=== PATIENT | female | born 1970 | race Caucasian/White ===

== ENCOUNTER 2017-01-09 16:42 | Emergency (ER) | payer BC ==
[~2017-01-09] VITALS: Ht 170.2 cm; Wt 75.6 kg
[2017-01-09 16:48] VITALS: TEMP 36.9; Ht 170.2 cm; Wt 75.6 kg
[2017-01-09] MEDS ORDERED: SODIUM CHLORIDE 0.9% 500ML 500 ML IV STA (17:05)
[2017-01-09] MEDS ORDERED: SODIUM CHLORIDE 0.9% 1000ML 1,000 ML IV STA (17:05)
[2017-01-09] MEDS ORDERED: DICYCLOMINE HCL 20 MG TAB PO STA (17:05)
[2017-01-09] MEDS ORDERED: INSPMPNVLG (17:13)
[2017-01-09] MEDS ORDERED: LIRA18IN SQ (17:13)
[2017-01-09] MEDS ORDERED: VALA500T60 PO (17:13)
[2017-01-09] MEDS ORDERED: LISI-461 PO (17:13)
[2017-01-09] MEDS ORDERED: ESCI10TA17 PO (17:13)
[2017-01-09] MEDS ORDERED: PRAV10TA39 PO (17:13)
[2017-01-09] MEDS ORDERED: OPTIRAY 320 IV PRN (17:15)
[2017-01-09 17:18] LABS: BASO % 0.1 %; BASO ABS # 0.01 K/uL (0-0.2); COMPLETE YES; EOS % 0.8 %; HEMATOCRIT 39.1 % (37-47); IG% 0.3 %; LYMPH % 27.2 %; MONO % 7.2 %; NEUT % 64.4 %; PLATELET COUNT 288 K/uL (130-400); RED BLOOD COUNT 4.16 M/uL (4.2-5.4); WHITE BLOOD COUNT 7.35 K/uL (4.8-10.8)
[2017-01-09 17:28] LABS: URINE APPEARANCE CLEAR (CLEAR); URINE BILIRUBIN NEG (NEG); URINE COLOR YELLOW; URINE NITRITE NEG (NEG); URINE SPECIFIC GRAVITY 1.006 (1.000-1.030); UROBILINOGEN NEG (NEG); ZZUR CULT IF INDIC CLEAN CATCH NO
[2017-01-09 17:34] LABS: MANUAL MICROSCOPIC REQUIRED? NO; REVIEW REQ? YES
[2017-01-09 17:36] LABS: BUN/CREATININE RATIO 11.9 (10-20); CALCIUM 9.1 mg/dl (8.5-10.1); CREATININE 0.73 mg/dl (0.60-1.20); MAGNESIUM 1.8 mg/dl (1.8-2.4); POTASSIUM 3.7 mmol/L (3.5-5.1)
[2017-01-09 17:56] LABS: URINE EPITHELIAL CELL AUTO 20-30 /lpf (0-5)
--- NOTE | 2017-01-09 18:00 | EMERGENCY ROOM VISIT NOTE ---
History Report prepared by Ck: Parvez Wilkerson Under the Supervision of: Dr. Tracy Talley M.D. First contact with patient: 16:56 Chief Complaint: GI ASSESSMENT Stated Complaint: CRAMPING,DIARRHEA,BLOODY STOOL Nursing Triage Summary: pt awoke in the middle of the night with abd discomfort, vomit x 1 middle of night, having nausea, liq stool x 2 mucousy/blood. spec obtained. clean colonoscopy 1 year ago. has no other hx. has been drinking gatorade History of Present Illness The patient is a 46 year old female who presents to the Emergency Room with complaints of constant abdominal cramping starting around 0300 this morning. She currently rates her discomfort as a 2/10 in severity. The patient additionally states that she vomited once, and she had diarrhea. She states that is was not bloody at first, but now she is having some hematochezia. The patient states that she has a history of diabetes and asthma, and she has been drinking Gatorade and ate some Cheerios. The patient denies any fevers, though she states that she is having some chills. She states that she takes a baby aspirin. Source of History: patient Onset: 0300 Position: abdomen Symptom Intensity: 2/10 Quality: cramping Timing: constant Associated Symptoms: + chills, + vomiting, + hematochezia, + diarrhea, No fevers Review of Systems See HPI for pertinent positives & negatives. A total of 10 systems reviewed and were otherwise negative. Past Medical & Surgical Medical Problems: (1) Asthma (2) Diabetes (3) HTN (hypertension) (4) IBS (irritable bowel syndrome) Family History Diabetes mellitus Heart disease Hypertension Lung disease Social History Smoking Status: Former Smoker Marital Status: Housing Status: lives with family Occupation Status: employed Current/Historical Medications Scheduled Escitalopram (Lexapro), 10 MG PO DAILY Insulin Aspart (novoLOG INSULIN PUMP ), 1 EA N/A UD Liraglutide (Victoza), 1.2 ML SQ DAILY Lisinopril (Zestril), 10 MG PO DAILY Pravastatin Sodium (Pravastatin Sodium), 1 TAB PO HS Valacyclovir (Valtrex), 500 MG PO DAILY Allergies Coded Allergies: No Known Allergies (Unverified , 01/09/17) Physical Exam Vital Signs Date Time Temp Pulse Resp B/P (MAP) Pulse Ox O2 Delivery O2 Flow Rate FiO2 01/09/17 19:20 88 20 130/76 98 Room Air 01/09/17 19:19 139/77 01/09/17 19:07 77 23 01/09/17 19:02 70 21 01/09/17 18:57 70 18 01/09/17 18:52 72 21 01/09/17 18:47 79 33 01/09/17 18:42 82 20 01/09/17 18:37 76 19 01/09/17 18:32 86 17 01/09/17 18:27 75 21 01/09/17 18:22 85 21 01/09/17 18:02 74 25 38/77 98 01/09/17 17:57 83 18 01/09/17 17:52 72 16 01/09/17 17:47 73 21 01/09/17 17:42 79 17 01/09/17 17:37 73 21 01/09/17 17:32 73 14 01/09/17 17:27 80 25 01/09/17 17:22 79 14 01/09/17 17:19 84 01/09/17 16:48 36.9 70 20 138/86 97 Room Air Physical Exam Vital signs reviewed. General: Well-appearing female, in no significant distress. HEENT: No scleral icterus, PERRLA, neck supple. Atraumatic. Cardiovascular: Regular rate and rhythm, no extra sounds. Pulmonary: Clear to auscultation bilaterally, normal work of breathing. Abdomen: Mild epigastric tenderness to the epigastric area. Soft, nondistended, positive bowel sounds. Musculoskeletal: Atraumatic, no peripheral edema. Neurologic: Patient awake alert and oriented x 3. Skin: Warm, dry, no rash Medical Decision & Procedures ER Provider Diagnostic Interpretation: Radiology results as stated below per my review and radiologist interpretation: ABD/PELVIS IV CONTRAST ONLY HISTORY: 46 years-old Female ABD PAIN, BLOODY DIARRHEA acute generalized abdominal pain with bloody stools. Initial exam. COMPARISON: None available TECHNIQUE: Multiple axial CT images of the abdomen and pelvis were obtained following the intravenous administration of 120 mL Optiray 320. A dose lowering technique was used consistent with the principals of BJ. FINDINGS: Lung bases are generally clear. There is no pneumoperitoneum identified. Imaged inferior cardiac chambers are unremarkable. The liver, spleen, pancreas and adrenal glands are within normal limits. Gallbladder is mildly contracted. Probable cysts are seen within the right kidney, largest of which measures 11 mm. No renal calculi or hydronephrosis. Ureters, urinary bladder and uterus are unremarkable. Cervix appears mildly prominent in size which is a nonspecific finding. Adnexa are unremarkable. Abdominal aorta is normal in both course and caliber. No bulky retroperitoneal adenopathy. Inguinal lymph nodes are seen measuring in the upper limits of normal at 8 mm in short axis, nonspecific. There is no bowel obstruction. Circumferential wall thickening with mucosal hyperemia involves a long segment of colon extending from the splenic flexure to the sigmoid colon containing mild amount of fluid without significant surrounding inflammatory stranding. The appendix is normal. Soft tissues are unremarkable. The bones are intact. IMPRESSION: 1. Findings suggest mild acute colitis, likely infectious or inflammatory involving the descending and sigmoid colon. 2. Normal appendix. 3. Mild nonspecific prominence of the cervix could be correlated with clinical exam. The above report was generated using voice recognition software. It may contain grammatical, syntax or spelling errors. Electronically signed by: Ronnie Mueller M.D. 01/09/2017 6:23 PM Dictated Date/Time: 01/09/2017 6:16 PM Laboratory Results 01/09/17 17:05 Red Blood Count 4.16, Mean Corpuscular Volume 94.0, Mean Corpuscular Hemoglobin 32.0, Mean Corpuscular Hemoglobin Concent 34.0, Mean Platelet Volume 9.0, Neutrophils (%) (Auto) 64.4, Lymphocytes (%) (Auto) 27.2, Monocytes (%) (Auto) 7.2, Eosinophils (%) (Auto) 0.8, Basophils (%) (Auto) 0.1, Neutrophils # (Auto) 4.73, Lymphocytes # (Auto) 2.00, Monocytes # (Auto) 0.53, Eosinophils # (Auto) 0.06, Basophils # (Auto) 0.01 01/09/17 17:05 Test 01/09/17 17:05 01/09/17 17:10 White Blood Count 7.35 K/uL (4.8-10.8) Red Blood Count 4.16 M/uL (4.2-5.4) Hemoglobin 13.3 g/dL (12.0-16.0) Hematocrit 39.1 % (37-47) Mean Corpuscular Volume 94.0 fL (80-100) Mean Corpuscular Hemoglobin 32.0 pg (25-34) Mean Corpuscular Hemoglobin Concent 34.0 g/dl (32-36) Platelet Count 288 K/uL (130-400) Mean Platelet Volume 9.0 fL (7.4-10.4) Neutrophils (%) (Auto) 64.4 % Lymphocytes (%) (Auto) 27.2 % Monocytes (%) (Auto) 7.2 % Eosinophils (%) (Auto) 0.8 % Basophils (%) (Auto) 0.1 % Neutrophils # (Auto) 4.73 K/uL (1.4-6.5) Lymphocytes # (Auto) 2.00 K/uL (1.2-3.4) Monocytes # (Auto) 0.53 K/uL (0.11-0.59) Eosinophils # (Auto) 0.06 K/uL (0-0.5) Basophils # (Auto) 0.01 K/uL (0-0.2) RDW Standard Deviation 42.2 fL (36.4-46.3) RDW Coefficient of Variation 12.4 % (11.5-14.5) Immature Granulocyte % (Auto) 0.3 % Immature Granulocyte # (Auto) 0.02 K/uL (0.00-0.02) Anion Gap 8.0 mmol/L (3-11) Est Creatinine Clear Calc Drug Dose 100.0 ml/min Estimated GFR () 112.9 Estimated GFR (Non- 97.4 BUN/Creatinine Ratio 11.9 (10-20) Calcium Level 9.1 mg/dl (8.5-10.1) Magnesium Level 1.8 mg/dl (1.8-2.4) Total Bilirubin 0.6 mg/dl (0.2-1) Direct Bilirubin 0.2 mg/dl (0-0.2) Aspartate Amino Transf (AST/SGOT) 16 U/L (15-37) Alanine Aminotransferase (ALT/SGPT) 21 U/L (12-78) Alkaline Phosphatase 54 U/L (45-117) Total Protein 7.5 gm/dl (6.4-8.2) Albumin 3.7 gm/dl (3.4-5.0) Lipase 93 U/L (73-393) Urine Color YELLOW Urine Appearance CLEAR (CLEAR) Urine pH 6.0 (4.5-7.5) Urine Specific [place] 1.006 (1.000-1.030) Urine Protein NEG (NEG) Urine Glucose (UA) NEG (NEG) Urine Ketones NEG (NEG) Urine Occult Blood TRACE (NEG) Urine Nitrite NEG (NEG) Urine Bilirubin NEG (NEG) Urine Urobilinogen NEG (NEG) Urine Leukocyte Esterase NEG (NEG) Urine WBC (Auto) 1-5 /hpf (0-5) Urine RBC (Auto) 5-10 /hpf (0-4) Urine Hyaline Casts (Auto) 0 /lpf (0-5) Urine Epithelial Cells (Auto) 20-30 /lpf (0-5) Urine Bacteria (Auto) NEG (NEG) Date/Time Source Procedure Growth Status 01/09/17 17:10 Stool C.difficile Toxin B Gene (PCR) - Final No C. difficile toxin B gene detected Complete Laboratory results per my review. Medications Administered Medications (Trade) Dose Ordered Sig/Nilda Route Start Time Stop Time Status Last Admin Dose Admin Sodium Chloride 500 ml @ 999 mls/hr Q31M STAT IV 01/09/17 17:05 01/09/17 17:35 DC 01/09/17 17:05 999 MLS/HR Sodium Chloride 1,000 ml @ 200 mls/hr Q5H STAT IV 01/09/17 17:05 01/09/17 20:27 DC 01/09/17 17:54 200 MLS/HR Dicyclomine HCl (Bentyl Tab) 20 mg NOW STAT PO 01/09/17 17:05 01/09/17 17:08 DC 01/09/17 17:55 20 MG ED Course 1656: Past medical records reviewed. The patient was evaluated in room A3. A complete history and physical examination was performed. 1705: Bentyl Tab 20mg PO, Sodium Chloride 1000 ml @ 200 mls/hr IV, Sodium Chloride 500 ml @ 999 mls/hr IV 1910: I reevaluated the patient, and she was feeling fine. I discussed the treatment plan with the patient. The patient will be discharged home. Medical Decision Differential Diagnoses: GI bleed, infectious diarrhea, colitis, C Diff, rectal fissure, diverticulitis, and colonic mass. This patient was evaluated and appeared to be in no significant distress. IV access was obtained and laboratory work was drawn. Patient was hydrated with normal saline solution. Patient was given Bentyl 20 mg tab by mouth. She didn' t provide a stool specimen that was sent for testing. This is C. difficile negative. Patient's H&H is stable and she has a normal white blood cell count. CT scan abdomen and pelvis reveals a nonspecific colitis. Patient was advised to drink plenty of clear fluids and eat a bland diet. She will call the ER in 48 hours for stool culture results. She'll follow-up with her PCP upon return home and return to the ER for worsening of symptoms or any medical concerns. Medication Reconcilliation Current Medication List: was personally reviewed by me Blood Pressure Screening Patient's blood pressure: Elevated blood pressure Blood pressure disposition: Elevated BP felt to be situational Impression Primary Impression: Hemorrhagic colitis Scribe Attestation The scribe's documentation has been prepared under my direction and personally reviewed by me in its entirety. I confirm that the note above accurately reflects all work, treatment, procedures, and medical decision making performed by me. Departure Information Dispostion Home / Self-Care Referrals Isis Arevalo M.D. (PCP) Forms HOME CARE DOCUMENTATION FORM, IMPORTANT VISIT INFORMATION Patient Instructions My [facility] Additional Instructions Diagnosis: Hemorrhagic colitis BRAT diet: bananas, rice, applesauce and toast. Drink plenty of clear fluids, water and Gatorade. Avoid dairy products for 24-48 hours. Call the ER in 48 hours for stool culture results, Follow-up with your physician this week for reevaluation. Return to the emergency department for worsening of symptoms or any medical concerns.
--- NOTE | 2017-01-09 18:24 | DIAGNOSTIC IMAGING REPORT ---
ABD/PELVIS IV CONTRAST ONLY HISTORY: 46 years-old Female ABD PAIN, BLOODY DIARRHEA acute generalized abdominal pain with bloody stools. Initial exam. COMPARISON: None available TECHNIQUE: Multiple axial CT images of the abdomen and pelvis were obtained following the intravenous administration of 120 mL Optiray 320. A dose lowering technique was used consistent with the principals of BJ. FINDINGS: Lung bases are generally clear. There is no pneumoperitoneum identified. Imaged inferior cardiac chambers are unremarkable. The liver, spleen, pancreas and adrenal glands are within normal limits. Gallbladder is mildly contracted. Probable cysts are seen within the right kidney, largest of which measures 11 mm. No renal calculi or hydronephrosis. Ureters, urinary bladder and uterus are unremarkable. Cervix appears mildly prominent in size which is a nonspecific finding. Adnexa are unremarkable. Abdominal aorta is normal in both course and caliber. No bulky retroperitoneal adenopathy. Inguinal lymph nodes are seen measuring in the upper limits of normal at 8 mm in short axis, nonspecific. There is no bowel obstruction. Circumferential wall thickening with mucosal hyperemia involves a long segment of colon extending from the splenic flexure to the sigmoid colon containing mild amount of fluid without significant surrounding inflammatory stranding. The appendix is normal. Soft tissues are unremarkable. The bones are intact. IMPRESSION: 1. Findings suggest mild acute colitis, likely infectious or inflammatory involving the descending and sigmoid colon. 2. Normal appendix. 3. Mild nonspecific prominence of the cervix could be correlated with clinical exam. The above report was generated using voice recognition software. It may contain grammatical, syntax or spelling errors. Electronically signed by: Ronnie Mueller M.D. 01/09/2017 6:23 PM Dictated Date/Time: 01/09/2017 6:16 PM
[2017-01-09 19:20] VITALS: BP 130/76; PULSE 88; O2SAT 98
== END 2017-01-09 19:20 | disposition home or self-care (01) ==
LOC: C.EDB 16:44 → C.EDA 19:20
DX: K52.9 Noninfective gastroenteritis and colitis, unspecified (principal); J45.909 Unspecified asthma, uncomplicated; E11.9 Type 2 diabetes mellitus without complications; I10 Essential (primary) hypertension; K58.9 Irritable bowel syndrome, unspecified; Z83.3 Family history of diabetes mellitus; Z82.49 Family history of ischemic heart disease and other diseases of the circulatory system; Z83.6 Family history of other diseases of the respiratory system; Z87.891 Personal history of nicotine dependence; Z79.4 Long term (current) use of insulin; Z79.899 Other long term (current) drug therapy

== ENCOUNTER 2024-07-16 10:10 | Inpatient (IN) ==
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
--- OUTSIDE RECORDS SUMMARY | 2024-07-16 10:17 | External Medical Summary | Continuity of Care Document ---
Author Name Unknown Organization [facility] [address] [place] [address] [place] [address] [id number] Care Team Providers Care Blanket Inspector Name Role Phone Irena Humphrey Primary Care Physician [phone] Encounter [facility] [id number] Date(s): 07/06/24 - 07/06/24 [facility] [address] [place] [phone] Encounter Diagnosis Acute URI(Discharge Diagnosis) - 07/06/24 Discharge Disposition: Home or Self Care Attending Physician: MD Jordan Christopher Encounter Type: Clinic Allergies, Adverse Reactions, Alerts No Known Allergies Assessment and Plan Extracted from: Title:Office Visit Note Author:DO Echevarria Alonn a Paige Date:07/06/24 Acute URI - Acute, not at goal - 4 days of congestion/rhinorrhea/aches - Suspect Viral URI,Flu A, Flu B, and COVID-19 negative - Recommend use of OTC Nasal Corticosteroid (Flonase), Antihistamine (Claritin/Skye/Zyrtec), and Decongestant (Dextromethorphan/Guaifenesin) - Discussed som pot and nasal saline rinses for additional comfort - Encouraged adequate hydration (64 ounces of water daily) - Patient advised to call if symptoms worsen or if temperature > 38C - Return & EDprecautions provided for T1DM & viral URI Immunizations Given and Recorded Vaccine Date Status Refusal Reason SARS-CoV-2 (COVID-19) mRNA-vacc - [id number] 02/03/24 Recorded influenza virus vaccine, inactivated 01/31/24 [...] unspecified 2Result Comment: 2021-09-19: Historical information-source unspecified Mental Status 07/06/24 Barriers to Learning one year None evide nt Mandatory Health Literacy Documentation Yes Health Literacy Communication Barriers N ever Primary Language Paraguayan Problem List Condition Confirmation Course Effective Dates [...] Diagnosis Diagnosis Type Effective Dates Health Status Clini yasmine Service Informant Acute URI Discharge Diagnosis 07/06/24 Non-Specified Procedures Procedure Date Related Diagnosis Body [...] CTR - Carpal tunnel release, right hand 22 11/30/14 Completed X-ray 2014 Completed Injection of [...] PCP 4Left Middle Trigger Digit Release 5[facility] Impression: 1 Normal contractile response of the gallbladder to Kinevac infusion 2.Normal biliary imaging study 6[facility] Impression: 1. No significant abnormality identified within the right upper quadrant 7[facility] Impression: ACR BI-RADS CATEGORY 2: BENIGN 1. No evidence of malignancy 8[facility] Impression: 1. No acute abnormalities and in particular no radiographic evidence of pneumonia 9[facility] Impression: 1. Posterior vitreous detachment OD. 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 Treated proliferative diabetic retinopathy OD. Good PRP 4. Treated proliferative diabetic retinopathy OS. Good PRP 5. Chronic vitreous hemorrhage OD 6. Nuclear sclerosis OU 10[facility] Impression: 1. Unremarkable esophagram 11[facility] Impression: ACR BI-RADS CATEGORY 1: NEGATIVE 1. No evidence of malignancy 12No acute abnormalities and in particular no evidence of pneumonia 13Left Carpal Tunnel Syndrome 14Left 15[facility] 16[facility] Impression: ACR BI-RADS CATEGORY 2: BENIGN 1. [...] stomach Normal examined duodenum Await pathology results. 19[facility] Impression: 1. DM Type 1 with ocular complications 2. Proliferative diabetic retinopathy OD 3. Treated proliferative diabetic retinopathy OS. Quiescent post PRP 4. Nuclear sclerosis OU 20[facility] Impression: 1. Trace layering gallbladder sludge. No cholelithiasis or sonographic evidence of acute cholecystitis 2. No biliary ductal dilation 21IMPRESSION: No active disease in the chest. 22right 23May- 24left shoulder 25PROCEDURE: 1. Arthroscopic capsular release. 2. Arthroscopic subacromial decompression. 3. Manipulation of shoulder. 26left eye 27PRP LE 10/15/03, 11/08/03 and 12/03/03 Results Laboratory List Name Date FluA/B+SARS CoV2 [facility] POC Outpt. 07/06 Most recent to oldest [Reference Range]: 1 Rapid Influenza A, POC Negative 1 (07/06/24 8:46 AM) Rapid Influenza B, POC Negative (07/06/24 8:46 AM) Rapid Influenza A Screen Ref Range Negat neto (07/06/24 8:46 AM) Rapid Influenza B Screen Ref Range Negat neto (07/06/24 8:46 AM) COVID-19 Coronavirus Antigen POC Negativ e 2 (07/06/24 8:46 AM) 1Result Comment: Performed at: [facility], [facility], [address], [place] [id number] 2Result Comment: Positive results indicate the presence of viral antigens, but clinical correlation with patient history and other diagnostic information is necessary to determine infection status. Positive results do not rule out bacterial infection or co-infection with other viruses. The agent detected may not bethe definite cause of disease. Negative results should be treated as presumptive, do not rule out SARS-CoV-2 infection and should not be used as the sole basis for treatment or patient management decisions, including infection control decisions. Negative results should be considered in the context of a patients recent exposures, history and the presence of clinical signs and symptoms consistent with COVID-19, and confirmed with a molecular assay, if necessary, for patient management. Performed at: [facility], [address], [address], [place] [address] Vital Signs Most recent to oldest [Reference Range]: 1 Temperature [36.5-37.9 DegC] 36.7 DegC (07/06/24 8:17 AM) Heart Rate 87 bpm (07/06/24 8:17 AM) Respiratory Rate 12 br/min (07/06/24 8:17 AM) Blood Pressure 108/72mmHg (07/06/24 8:17 AM) Cuff Pulse Pressure 36 mmHg (07/06/24 8:17 AM) Social History Social History Type Response Tobacco Former smoker, Cigar ettes, 0.5 per day. 24 year(s). Started age 16 Years. Stopped age 40 Years. Smoking Status Never smoked cigaret tania Sex Female Sex Representation Female (finding) FCM Outpt Note * MD Julian, Carson: MODIFY MD Jordan Christopher: MODIFY Event Display: FCM Outpt Note Authored Date: Chief Complaint Cold symptoms x 3-4 days sinus pressure cough fever 100.6 last night body aches fatugie History of Present Illness Rupert is a 54 F w/ hx of T1DM, asthma, GERD, and allergies who presents for evaluation of URI. URI - Onset Wednesday night w/ sore throat and sinus pressure - Progressed to significant rhinorrhea, fatigue, aches - Temperature up to 100.6 - Mild dyspnea, no chest pain - Hx of T1DM, adjusted pump d/t low PO intake - Hydrating well, 100 + ounces - Notes significant rhinorrhea and PND - Tylenol w/ benefit - Notes father just passed w/ Flu - Denies GI symptoms - NoHAor lightheadedness Med Changes: None Allergies: Reviewed Physical Exam Vitals & Measurements T:36.7C HR:87(Monitored) RR:12 BP:108/72 SpO2:97% General: NAD, alert, non-toxic HEENT: NC/AT, PERRL, EOMI, patent erythematous nares, MMM - Oropharynx: MIld erythema, no purulence - TM: Normal TM bilaterally, no erythema or purulence - Maxillary Sinus: No TTP - Frontal Sinus: TTP Neck: Supple, no LAD, normal ROM Respiratory: Non-labored, no wheezing/rhonchi/rales, CTAB Cardiovascular: RRR, normal S1/S2, no murmur/rubs/gallops Abdomen: Soft, non-distended, no TTP, normoactive bowel sounds, no masses Assessment/Plan Acute URI - Acute, not at goal - 4 days of congestion/rhinorrhea/aches - Suspect Viral URI,Flu A, Flu B, and COVID-19 negative - Recommend use of OTC Nasal Corticosteroid (Flonase), Antihistamine (Claritin/Skye/Zyrtec), andDecongestant (Dextromethorphan/Guaifenesin) - Discussed som pot and nasal saline rinses for additional comfort - Encouraged adequate hydration (64 ounces of water daily) - Patient advised to call if symptoms worsen or if temperature > 38C - Return & EDprecautions provided for T1DM & viral URI Attestation Patient's case reviewed in detail with Dr. Echevarria, agree with detail of history and physical as documented above. Plan reviewed in detail with providing resident physician. Problem List/Past Medical History Ongoing Adhesive capsulitis [...] Hematochezia Sinus infection Tobacco abuse Viral URI Procedure/Surgical History EGD - esophagogastroduodenoscopy| Service Date: 04/19/2023Release of trigger finger| Service Date: 04/08/2023HEPATOBILIARY SYSTEM IMAGING| Service Date: 02/19/2023Ultrasound scan of upperabdomen| Service Date: 01/28/2023Mammogram| Service Date: 3Chest x-ray| Service Date: 3Diabetic retinal eye exam| Service Date: 2Barium swallow| Service Date: 01/27/2022Mammogram| Service Date: 2Chest x-ray| Service Date: 2Carpal tunnel release| Service Date: 04/10/2021arpal tunnel| Service Date: 1Papanicolaou smeartaken| Service Date: 12/25/2020Mammogram| Service Date: 09/10/2020iabetic retinal eye exam| Service Date: 07/08/2020Upper GI endoscopy| Service Date: 02/29/2020Eye examination| Service Date: 02/05/2020Ultrasound scan of upper abdomen| Service Date: 11/16/2019Chest X-ray| Service Date: 07/13/2019Speech pathology procedure| Service Date: 09/10/2017Colonoscopy| Service Date:02/11/2016Gastric emptying study| Service Date: 05/29/2015CTR - Carpal tunnel release, right hand| Service Date: 11/30/2014X-ray| Service Date: 2014Injection of steroid| Service Date: 09/2013Rotator cuff repair| Service Date: 04/11/2013trigger thumb release| Service Date: 2012Scar tissue removed from buttocks| Service Date: 1983Laser surgery Medications albuterol(albuterol CFC free 90 mcg/inh MDI), 1-2 puff, inhaled, qid, PRN, 3 refills azelastine nasal(azelastine 137 mcg/inh (0.1%) nasal spray), [...] insulin aspart(NovoLOG 100 units/mL injectable solution), See Instructions ipratropium nasal(ipratropium 42 mcg/inh (0.06%) nasal spray), 2 spray, each nostril, tid, PRN, 2 refills losartan(losartan 100 mg oral tablet), 100 mg= 1 tab, PO, Daily, 3 refills metoprolol(Toprol-XL 25 mg oral tablet, extended release), See Instructions, 3 refills pravastatin(pravastatin 10 mg oral tablet), See Instructions, 3 refills rOPINIRole(rOPINIRole 0.25 mg oral tablet), 0.25 mg= [...] tab, PO, Daily, 3 refills Allergies NKA Social History Smoking Status Never smoked cigarettes Alcohol Use:Current Type:Beer, Wine, Liquor Frequency:Daily Average drinks per episode in last year:1 Employment/School Status:Employed Description:[employer] Exercise - Occasional exercise Times per week:3-4 times/week Exercise type:hiking 5 miles/month Home/Environment Lives with:Spouse Feels unsafe at home:No - Comments: Home has smoke and CO detectors. Wears seatbelt in the car. Uses sun protection when outdoors. Nutrition/Health Diet description:Low carb Type of diet:Diabetic Caffeine intake amount:Drinks 1 cup of coffee/day Other Details:Has not had a blood transfusion. Has a tattoo that was done professionally. Has not been incarcerated. Has had negative HIV testing in the past. Sexual Sexually active:No Substance Abuse - Denies Substance Abuse Tobacco - Denies Tobacco Use Use:Former smoker Type:Cigarettes Tobacco use per day:0.5 Number of years:24 Started at age:16Years Stopped at age:40Years Intake (IVtootiew) Smoking History Cigarette smoker: Never smoked cigarettes Tobacco Product Use: Never used other tobacco products Family History Anorexia: Mother. Bipolar: Mother. CAD (coronary artery disease): Father. Cardiac amyloidosis: Father. Depression.: Mother. Diabetes: Father. Eating disorder: Mother. Heart attack: Father. High Blood Pressure: Father. Macular degeneration, age related....: Father. Parkinson disease: Mother. Seizure: Mother. Health Status Family Member(s) Immunizations Vaccine Date Status SARS-CoV-2 (COVID-19) mRNA-vacc - [id number] 02/03/2024 Recorded influenza virus vaccine, inactivated 01/31/2024 Recorded SARS-CoV-2 mRNA (Pfizer 12+) bivalent 03/05/2022 Recorded pneumococcal 20-valent conjugate vaccine 01/21/2022 Given influenza virus vaccine, inactivated 01/21/2022 Given SARS-CoV-2 (COVID-19) mRNA-1273 vaccine 03/14/2021 Recorded Comments : 2021-09-19: Historical information-source unspecified influenza virus vaccine, inactivated 01/20/2021 Given tetanus/diphtheria/pertuss, acel (Tdap) 09/08/2020 Recorded tetanus/diphtheria/pertuss, acel (Tdap) 09/07/2020 Recorded SARS-CoV-2 (COVID-19) mRNA-1273 vaccine 06/05/2020 Given SARS-CoV-2 (COVID-19) mRNA-1273 vaccine 05/09/2020 Given influenza virus vaccine, inactivated 01/08/2013 Recorded tetanus/diphtheria/pertuss, acel (Tdap) 08/16/2009 Recorded influenza virus vaccine, H1N1 03/18/2009 Recorded Comments : 2021-09-19: Historical information-source unspecified pneumococcal 23-valent vaccine 08/24/2002 Recorded Recommendations Health Maintenance Pending(in the next year) Due Adult Social Determinants of Health Screening due07/06/24Unknown Frequency Hepatitis C Screening due07/06/24One-time only Shingles Vaccine due07/06/24One-time only Due In Future Diabetic Eye Exam not due until09/20/24and every 366day Adult Influenza Vaccine not due until11/07/24and every 1year Kidney Health Evaluation not due until11/17/24and every 366day Body Mass Index not due until04/18/25and every 366day Diabetes Management A1c not due until06/03/25and every 366day Satisfied(in the past 1 year) Satisfied Adult Influenza Vaccine on01/31/24.Satisfied by KENYON Forbes Paul Body Mass Index on04/17/24.Satisfied by KENYON Phelan Kim Breast Cancer Screening on10/22/23.Satisfied by KENYON Diez Andrew E Diabetes Management A1c on06/02/24.Satisfied by Contributor[employer]system, [id number] Diabetes Nephropathy Management on11/17/23.Satisfied by [employer]system, [email or web address] Diabetic Eye Exam on09/20/23.Satisfied by МАРИНА Burch Lynnae Kidney Health Evaluation on06/02/24.Satisfied by [employer], [email or web address] Lipid Screening on06/02/24.Satisfied by [employer], [email or web address] Electronic Signature on File Electronically Reviewed/Signed by: Thuan Echevarria DO Author Signature Dt/Tm:07/06/2024 09:14 AM Resident Department of Family Medicine Electronically Reviewed/Signed by: MD Radha Valeigner Signature Dt/Tm: 07/07/2024 02:59PM Department of Family Medicine APQ Patient Care team information Care Team Personnel Name: MD Servando, Letty Helm Position: Physician - Gastro Member Role: Lifetime Relationship Address: [address] [place] [address] [employer]: [phone] Name: RANDALL Negron, Deepika Position: Resident Care Provider Member Role: Resident Care Provider Name: MD Mickey, Isis Silva Position: Physician - Internal Med Member Role: Lifetime Relationship Address: [address] [place] [address] Telecom: [phone] Name: ELVIA Humphrey, Irena Balderas Position: Physician Asst Exmpt - Family Med Member Role: Primary Care Provider Address: [address] [place] [address] Telecom: [phone] Care Team Related Persons Name: ELAINE SALGADO Name: ELAINE SALGADO Insurance Providers Guarantor name: RUPERT SALGADO Health Plan Information #: 1 Payer: [employer] Member Number: [id number] Policy Number: NA Group Number: [id number] Health Plan Information #: 2 Payer: [employer] Member Number: [id number] Policy Number: NA Group Number: [id number]"
--- OUTSIDE RECORDS SUMMARY | 2024-07-16 10:18 | External Medical Summary | Continuity of Care Document ---
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(Final) - Presence of insulin pump (external) (internal)(Final) - Discharge Disposition: Home or Self Care Attending Physician: LOU Roberts Sarah A Allergies, Adverse Reactions, Alerts No Known Allergies Immunizations Given and Recorded Vaccine Date Status Refusal Reason SARS-CoV-2 (COVID-19) mRNA-vacc - [id number] 02/03/24 Recorded influenza virus vaccine, inactivated 01/31/24 [...] 3, PRN: as needed for wheezing, Pharmacy: [facility] (90 Day Supply) Start Date: 05/25/23 Stop Date: 05/19/24 Status: Ordered azelastine 137 mcg/inh (0.1%) nasal spray Start: 09/19/21 10:39:00 AM EDT, See Instructions, Disp# 3 each, Refills: 3, MAY USE 1 TO 2 SPRAYS IN EACH NOSTRIL EVERY 12 HOURS FOR SINUS CONGESTION, MAY USE WITH FLUTICASONE IF NEEDED FOR ALLERGY SYMPTOMS, Pharmacy: [facility] (90 Day Supply) Start Date: 09/19/21 Status: Ordered BACLOFEN 10 MG TABLET Start: 11/17/23 10:16:00 AM EDT, BACLOFEN 10 MG TABLET, 0.5 tab, PO, tid, Disp# 15 tab, Refills: 1, Pharmacy [facility] STORE [id number] Start Date: 11/17/23 Stop Date: 11/27/23 Status: Ordered Baqsimi 3 mg nasal powder Start: 03/14/19 10:07:00 AM EST, 1 inh, intranasal, ONCE, Disp# 2 packet, Refills: 3, PRN: as neededfor severe hypoglycemia, Pharmacy: [facility]/pharmacy #[id number], Supply Start Date: 03/14/19 Status: Ordered BD needle Ultra-Fine Pen Zora 32G x 4mm Start: 06/19/16 2:00:00 PM EST, See Instructions, Disp# 1 box, Refills: 3, to use with Victoza pen daily, Pharmacy: [facility]/pharmacy #[id number] Start Date: 2/10/17 Status: Ordered diclofenac sodium 75 mg oral delayed release tablet Start: 08/30/23 8:16:00 AM EDT, 1 tab, PO, bid, Disp# 180 tab, Refills: 3, PRN: as needed for pain, Pharmacy: [facility] (90 Day Supply) Start Date: 08/30/23 Stop Date: 08/24/24 Status: Ordered escitalopram 20 mg oral tablet Start: 12/27/23 7:15:00 AM EDT, 1 tab, PO, Daily, Disp# 90 tab, Refills: 3, Pharmacy: [facility] Start Date: 12/27/23 Status: Ordered Flexeril 5 mg oral tablet Start: 03/28/24 8:03:00 AM EST, 1 tab, PO, tid, Disp# 21 tab, Refills: 1, PRN: as needed for spasm,Pharmacy: [facility]/pharmacy #[id number] Start Date: 03/28/24 Stop Date: 04/11/24 Status: Ordered FreeStyle Lite Glucose Monitor Start: 10/31/19 9:06:00 AM EDT, See Instructions, Disp# 1 kit, Refills: 1, use to check glucose 4 x daily, Pharmacy: [facility] (90 Day Supply) Start Date: 10/31/19 Status: Ordered FreeStyle Lite Test Strips 100 ct Start: 05/25/23 8:14:00 AM EST, See Instructions, Disp# 300 each, Refills: 3, check BG 4 x daily, Pharmacy: [facility] (90 Day Supply) Start Date: 05/25/23 Status: Ordered furosemide 20 mg oral tablet Start: 08/30/23 8:16:00 AM EDT, 1 tab, PO, Daily, Disp# 90 tab, Refills: 3, Note to Pharmacy: discontinue hCTZ, Pharmacy: [facility] (90 Day Supply) Start Date: 08/30/23 Status: Ordered gabapentin 300 mg oral capsule Start: 12/27/23 11:50:00 AM EDT, 1 cap, PO, qhs, Disp# 90 unknown unit, Refills: 3, Pharmacy: [facility] Start Date: 12/27/23 Status: Ordered HumaLOG Vial 100 units/mL injectable solution Start: 01/26/24 2:59:00 PM EDT, See Instructions, Disp# 10 mL, Refills: 0, up to 70U SQ daily via insulin pump, Pharmacy: [facility]/pharmacy #[id number] Start Date: 01/26/24 Status: Ordered ipratropium 42 mcg/inh (0.06%) nasal spray Start: 10/29/23 3:25:00 PM EDT, 2 spray, each nostril, tid, Disp# 1 each, Refills: 2, PRN: as neededfor cold symptoms, Pharmacy: [facility]/pharmacy #[id number] Start Date: 10/29/23 Status: Ordered liraglutide (Victoza) 18 mg/3 mL subcutaneous solution Start: 11/23/23 8:22:00 AM EDT, See Instructions, subQ, Daily, Disp# 6 mL, Refills: 3, Inject 0.6 mgsubQ daily for one week then increase to 1.2 mg daily. Inject under the skin in the upper arm, thigh, or abdomen. Rotate injection sites., Pharmacy: [facility] (90 Day Supply) Start Date: 11/23/23 Status: Ordered losartan 100 mg oral tablet Start: 03/30/24 9:32:00 AM EST, 1 tab, PO, Daily, Disp# 90 tab, Refills: 3, Pharmacy: [facility] (90 Day Supply) Start Date: 03/30/24 Status: Ordered NovoLOG 100 units/mL injectable solution Start: 05/25/23 8:14:00 AM EST, See Instructions, Disp# 70 mL, Refills: 3, USING UP TO 70 UNITS SUBCUTANEOUSLY DAILY VIA INSULIN PUMP, Pharmacy: [facility] (90 Day Supply) Start Date: 05/25/23 Status: Ordered pravastatin 10 mg oral tablet Start: 08/30/23 8:15:00 AM EDT, See Instructions, Disp# 90 tab, Refills: 3, TAKE ONE TABLET BY MOUTHDAILY AT BEDTIME, Pharmacy: [facility] (90 Day Supply) Start Date: 08/30/23 Status: Ordered Prempro 0.45 mg-1.5 mg oral tablet Start: 06/08/22 8:56:00 AM EST, 1 tab, PO, Daily Start Date: 06/08/22 Status: Ordered rOPINIRole 0.25 mg oral tablet Start: 08/30/23 8:17:00 AM EDT, 1 tab, PO, Daily, Disp# 90 tab, Refills: 3, Pharmacy: [facility] (90 Day Supply) Start Date: 08/30/23 Stop Date: 08/24/24 Status: Ordered spacer for use w inhaler Start: 04/29/18 12:11:00 PM EST, spacer for use w inhaler, eRx Product Type: Supply, See Instructions, Disp# 1 unit, Spacer to use with inhaler, Pharmacy [facility]/pharmacy #[id number] Start Date: 04/29/18 Status: Ordered Toprol-XL 25 mg oral tablet, extended release Start: 11/12/23 11:39:00 AM EDT, See Instructions, Disp# 90 tab, Refills: 0, 1 tab PO Daily PRN priorto exercise, Pharmacy: [facility]/pharmacy #[id number] Start Date: 11/12/23 Status: Ordered traZODone 150 mg oral tablet Start: 08/30/23 8:15:00 AM EDT, 0.5 tab, PO, qhs, Disp# 45 tab, Refills: 3, Pharmacy: [facility] (90 Day Supply) Start Date: 08/30/23 Status: Ordered unlisted medication Start: 07/19/15 8:39:00 AM EST, ketone strips, eRx Product Type: Supply, See Instructions, Disp# 1 box, Refills: 3, use as directed for hyperglycemia, Pharmacy [facility] (90 Day Supply) Start Date: 07/19/15 Status: Ordered valACYclovir 500 mg oral tablet Start: 07/05/19 8:07:00 AM EST, 1 tab, PO, Daily, Disp# 90 tab, Refills: 3, Pharmacy: [facility] (90 Day Supply) Start Date: [...] - Carpal tunnel release, right hand 22 24/15 Completed X-ray 2014 Completed Injection of steroid [...] PCP 4Left Middle Trigger Digit Release 5[facility] Impression: 1 Normal contractile response of the gallbladder to Kinevac infusion 2.Normal biliary imaging study 6[facility] Impression: 1. No significant abnormality identified within the right upper quadrant 7[facility] Impression: ACR BI-RADS CATEGORY 2: BENIGN 1. No evidence of malignancy 8[facility] Impression: 1. No acute abnormalities and in particular no radiographic evidence of pneumonia 9[facility] Impression: 1. Posterior vitreous detachment OD. 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 Treated proliferative diabetic retinopathy OD. Good PRP 4. Treated proliferative diabetic retinopathy OS. Good PRP 5. Chronic vitreous hemorrhage OD 6. Nuclear sclerosis OU 10[facility] Impression: 1. Unremarkable esophagram 11[facility] Impression: ACR BI-RADS CATEGORY 1: NEGATIVE 1. No evidence of malignancy 12No acute abnormalities and in particular no evidence of pneumonia 13Left Carpal Tunnel Syndrome 14Left 15[facility] 16[facility] Impression: ACR BI-RADS CATEGORY 2: BENIGN 1. [...] stomach Normal examined duodenum Await pathology results. 19[facility] Impression: 1. DM Type 1 with ocular complications 2. Proliferative diabetic retinopathy OD 3. Treated proliferative diabetic retinopathy OS. Quiescent post PRP 4. Nuclear sclerosis OU 20[facility] Impression: 1. Trace layering gallbladder sludge. No cholelithiasis or sonographic evidence of acute cholecystitis 2. No biliary ductal dilation 21IMPRESSION: No active disease in the chest. 22right 23May- 24left shoulder 25PROCEDURE: 1. Arthroscopic capsular release. 2. Arthroscopic subacromial decompression. 3. Manipulation of shoulder. 26left eye 27PRP LE 10/15/03, 11/08/03 and 12/03/03 Results Laboratory List Name Date Comprehensive Metabolic Panel (COMP META B PANEL) 04/11/24 Lipid Profile (LIPOPROTEINS) 04/11/24 Most recent to oldest [Reference Range]: 1 eGFR CKD-EPI [>60 mL/min/1.73 m2] >90 mL /min/1.73 m2 1 (04/11/24 7:41 AM) Non-HDL 92 mg/dL 2 (04/11/24 7:41 AM) Estimated CrCl 106.15 mL/min (04/11/24 12:34 PM) Anion Gap [5-14 mmol/L] 3 mmol/L *LOW* (04/11/24 7:41 AM) Alb [3.5-5.0 g/dL] 4.0 g/dL (04/11/24 7:41 AM) Alk Phos [38-126 unit/L] 65 unit/L (04/11/24 7:41 AM) ALT [<35 unit/L] 20 unit/L (04/11/24 7:41 AM) AST [15-46 unit/L] 54 unit/L *HI* (04/11/24 7:41 AM) BUN [7-20 mg/dL] 15 mg/dL (04/11/24 7:41 AM) Ca [8.4-10.2 mg/dL] 9.1 mg/dL (04/11/24 7:41 AM) Chol/HDL 3 (04/11/24 7:41 AM) Chol [125-200 mg/dL] 153 mg/dL (04/11/24 7:41 AM) Cl- [96-107 mmol/L] 105 mmol/L (04/11/24 7:41 AM) HCO3 [22-30 mmol/L] 30 mmol/L (04/11/24 7:41 AM) Cret [0.60-1.00 mg/dL] 0.68 mg/dL (04/11/24 7:41 AM) Glu [74-106 mg/dL] 79 mg/dL (04/11/24 7:41 AM) HDL [>35 mg/dL] 61 mg/dL (04/11/24 7:41 AM) K [3.5-5.1 mmol/L] 4.6 mmol/L (04/11/24 7:41 AM) LDL Chol, Calculated [50-130 mg/dL] 58 m g/dL (04/11/24 7:41 AM) Na [137-145 mmol/L] 138 mmol/L (04/11/24 7:41 AM) T Bili [0.2-1.3 mg/dL] 0.6 mg/dL (04/11/24 7:41 AM) Prot [6.3-8.2 g/dL] 7.1 g/dL (04/11/24 7:41 AM) TG [<200 mg/dL] 170 mg/dL (04/11/24 7:41 AM) 1Result Comment: Testing Performed By: Dept of Pathology [facility] Ierna Hernandes, [address] [place] [id number] 2Result Comment: Testing Performed By: [facility], [address] [place] [address] Social History Social History Type Response Tobacco Former smoker, Cigar ettes, 0.5 per day. 24 year(s). Started age 16 Years. Stopped age 40 Years. Smoking Status Former Smoker, quit > 1 yr Sex Female Sex Representation Female (finding) Patient Care team information Care Team Personnel Name: MD Servando, Letty Helm Position: Physician - Gastro Member Role: Lifetime Relationship Address: [address] [place] [address] [place] Name: RANDALL Negron Melissa Position: Orthotic/Prosthetic Practitioner Member Role: Orthotic/Prosthetic Practitioner Name: MD Mickey, Isis Silva Position: Physician - Internal Med Member Role: Lifetime Relationship Address: [facility] [place] [address] Name: ELVIA Humphrey, Irena Balderas Position: Physician Asst Exyajairat - Family Med Member Role: Primary Care Provider Address: [address] [place] [id number] Care Team Related Persons Name: ELAINE SALGADO Name: ELAINE SALGADO
--- OUTSIDE RECORDS SUMMARY | 2024-07-16 10:18 | External Medical Summary | Continuity of Care Document ---
Author Name Unknown Organization [facility] Address [address] [place], [place] [id number] Care Team Providers Care Client Partner Name Role Phone Davidtc Irena Andrey Primary Care Physician [phone] Encounter [facility] [id number] Date(s): 04/17/24 - 04/17/24 [facility] [address], [address] [place] [address] [phone] Encounter Diagnosis Body mass index [BMI] 26.0-26.9, adult(Discharge Diagnosis) - 04/17/24 Hypertensive response to exercise(Discharge Diagnosis) - 04/17/24 HLD (hyperlipidemia)(Discharge Diagnosis) - 04/17/24 Abnormal LFTs(Discharge Diagnosis) - 04/17/24 Discharge Disposition: Home or Self Care Attending Physician: LOU Roberts Sarah A Allergies, Adverse Reactions, Alerts No Known Allergies Assessment and Plan Extracted from: Title:Cardiology Office Visit Note Author:LOU Calvillo rd, Sarah A Date:04/17/24 Impression: 1. LYNCH 2. Hypertensive response to exercise on stress test 2022 3. Edema 4. Stress echo 2022 with EF 65-70%, grade II diastolic dysfunction, mild tricuspid regurgitation, unchanged from 2018 echo 5. Hx tobacco use Ms. Salgado does feel better with addition of 25 mg metoprolol and I suggested she go ahead and take it every day which she is agreeable to. She will bring her bp cuff into work and have one of the nurses check it against a manual given the elevated diastolics. Her blood pressure is controlled today. Her edema is controlled with the furosemide. Her LDL is at goal. She did have a mildly elevated AST which she thought may be due to more alcohol consumption in February. She has orders from GI for a recheck. She will return to the clinic in 6 months. Immunizations Given and Recorded Vaccine Date Status Refusal Reason SARS-CoV-2 (COVID-19) mRNA-vacc - [id number] 02/03/24 Recorded influenza virus vaccine, inactivated 01/31/24 [...] 3, PRN: as needed for wheezing, Pharmacy: [facility] (90 Day Supply) Start Date: 05/25/23 Stop Date: 05/19/24 Status: Ordered Augmentin 875 mg-125 mg oral tablet Start: 04/19/24 3:00:00 PM EST, amoxicillin 1 tab, PO, q12h, Disp# 10, Pharmacy: [facility]/pharmacy #[id number] Start Date: 04/19/24 Stop Date: 04/24/24 Status: Ordered azelastine 137 mcg/inh (0.1%) nasal spray Start: 09/19/21 10:39:00 AM EDT, See Instructions, Disp# 3 each, Refills: 3, MAY USE 1 TO 2 SPRAYS IN EACH NOSTRIL EVERY 12 HOURS FOR SINUS CONGESTION, MAY USE WITH FLUTICASONE IF NEEDED FOR ALLERGY SYMPTOMS, Pharmacy: [facility] (90 Day Supply) Start Date: 09/19/21 Status: Ordered BACLOFEN 10 MG TABLET Start: 11/17/23 10:16:00 AM EDT, BACLOFEN 10 MG TABLET, 0.5 tab, PO, tid, Disp# 15 tab, Refills: 1, Pharmacy [id number] Start Date: 11/17/23 Stop Date: 11/27/23 Status: Ordered Baqsimi 3 mg nasal powder Start: 03/14/19 10:07:00 AM EST, 1 inh, intranasal, ONCE, Disp# 2 packet, Refills: 3, PRN: as neededfor severe hypoglycemia, Pharmacy: [facility]/pharmacy #[id number], Supply Start Date: 03/14/19 Status: Ordered BD needle Ultra-Fine Pen Zora 32G x 4mm Start: 06/19/16 2:00:00 PM EST, See Instructions, Disp# 1 box, Refills: 3, to use with Victoza pen daily, Pharmacy: [facility]/pharmacy #[id number] Start Date: 06/19/16 Status: Ordered diclofenac sodium 75 mg oral delayed release tablet Start: 08/30/23 8:16:00 AM EDT, 1 tab, PO, bid, Disp# 180 tab, Refills: 3, PRN: as needed for pain, Pharmacy: [facility] Mail Employee (90 Day Supply) Start Date: 08/30/23 Stop Date: 08/24/24 Status: Ordered escitalopram 20 mg oral tablet Start: 12/27/23 7:15:00 AM EDT, 1 tab, PO, Daily, Disp# 90 tab, Refills: 3, Pharmacy: [facility] Start Date: 12/27/23 Status: Ordered Flexeril 5 mg oral tablet Start: 03/28/24 8:03:00 AM EST, 1 tab, PO, tid, Disp# 21 tab, Refills: 1, PRN: as needed for spasm,Pharmacy: [facility]/pharmacy #[id number] Start Date: 03/28/24 Stop Date: 04/11/24 Status: Ordered FreeStyle Lite Glucose Monitor Start: 10/31/19 9:06:00 AM EDT, See Instructions, Disp# 1 kit, Refills: 1, use to check glucose 4 x daily, Pharmacy: [facility] Mail [facility] (90 Day Supply) Start Date: 10/31/19 Status: Ordered FreeStyle Lite Test Strips 100 ct Start: 05/25/23 8:14:00 AM EST, See Instructions, Disp# 300 each, Refills: 3, check BG 4 x daily, Pharmacy: [facility] (90 Day Supply) Start Date: 05/25/23 Status: Ordered furosemide 20 mg oral tablet Start: 08/30/23 8:16:00 AM EDT, 1 tab, PO, Daily, Disp# 90 tab, Refills: 3, Note to Pharmacy: discontinue hCTZ, Pharmacy: [facility] (90 Day Supply) Start Date: 08/30/23 Status: Ordered gabapentin 300 mg oral capsule Start: 12/27/23 11:50:00 AM EDT, 1 cap, PO, qhs, Disp# 90 unknown unit, Refills: 3, Pharmacy: [facility] Start Date: 12/27/23 Status: Ordered HumaLOG Vial 100 units/mL injectable solution Start: 01/26/24 2:59:00 PM EDT, See Instructions, Disp# 10 mL, Refills: 0, up to 70U SQ daily via insulin pump, Pharmacy: [facility]/pharmacy #[id number] Start Date: 01/26/24 Status: Ordered ipratropium 42 mcg/inh (0.06%) nasal spray Start: 10/29/23 3:25:00 PM EDT, 2 spray, each nostril, tid, Disp# 1 each, Refills: 2, PRN: as neededfor cold symptoms, Pharmacy: [facility]/pharmacy #[id number] Start Date: 10/29/23 Status: Ordered liraglutide (Victoza) 18 mg/3 mL subcutaneous solution Start: 11/23/23 8:22:00 AM EDT, See Instructions, subQ, Daily, Disp# 6 mL, Refills: 3, Inject 0.6 mgsubQ daily for one week then increase to 1.2 mg daily. Inject under the skin in the upper arm, thigh, or abdomen. Rotate injection sites., Pharmacy: [facility] Mail Employee (90 Day Supply) Start Date: 11/23/23 Status: Ordered losartan 100 mg oral tablet Start: 03/30/24 9:32:00 AM EST, 1 tab, PO, Daily, Disp# 90 tab, Refills: 3, Pharmacy: [facility] (90 Day Supply) Start Date: 03/30/24 Status: Ordered NovoLOG 100 units/mL injectable solution Start: 05/25/23 8:14:00 AM EST, See Instructions, Disp# 70 mL, Refills: 3, USING UP TO 70 UNITS SUBCUTANEOUSLY DAILY VIA INSULIN PUMP, Pharmacy: [facility] (90 Day Supply) Start Date: 05/25/23 Status: Ordered pravastatin 10 mg oral tablet Start: 08/30/23 8:15:00 AM EDT, See Instructions, Disp# 90 tab, Refills: 3, TAKE ONE TABLET BY MOUTHDAILY AT BEDTIME, Pharmacy: [facility] Mail Employee (90 Day Supply) Start Date: 08/30/23 Status: Ordered Prempro 0.45 mg-1.5 mg oral tablet Start: 06/08/22 8:56:00 AM EST, 1 tab, PO, Daily Start Date: 06/08/22 Status: Ordered rOPINIRole 0.25 mg oral tablet Start: 08/30/23 8:17:00 AM EDT, 1 tab, PO, Daily, Disp# 90 tab, Refills: 3, Pharmacy: [facility] (90 Day Supply) Start Date: 08/30/23 Stop Date: 08/24/24 Status: Ordered spacer for use w inhaler Start: 04/29/18 12:11:00 PM EST, spacer for use w inhaler, eRx Product Type: Supply, See Instructions, Disp# 1 unit, Spacer to use with inhaler, Pharmacy [facility]/pharmacy #[id number] Start Date: 04/29/18 Status: Ordered Toprol-XL 25 mg oral tablet, extended release Start: 11/12/23 11:39:00 AM EDT, See Instructions, Disp# 90 tab, Refills: 0, 1 tab PO Daily PRN priorto exercise, Pharmacy: [facility]/pharmacy #[id number] Start Date: 11/12/23 Status: Ordered traZODone 150 mg oral tablet Start: 08/30/23 8:15:00 AM EDT, 0.5 tab, PO, qhs, Disp# 45 tab, Refills: 3, [facility] (90 Day [facility]) Start Date: 08/30/23 Status: Ordered unlisted medication Start: 07/19/15 8:39:00 AM EST, ketone strips, eRx Product Type: Supply, See Instructions, Disp# 1 box, Refills: 3, use as directed for hyperglycemia, Pharmacy [facility] (90 Day Supply) Start Date: 07/19/15 Status: Ordered valACYclovir 500 mg oral tablet Start: 07/05/19 8:07:00 AM EST, 1 tab, PO, Daily, Disp# 90 tab, Refills: 3, Pharmacy: [facility] Mail [facility] (90 Day Supply) Start Date: 07/05/19 Status: Ordered Mental Status 04/17/24 Barriers to Learning one year None evide nt Mandatory Health Literacy Documentation Yes Health Literacy Communication Barriers R martinez Primary Language Maori Problem List Condition Confirmation Course Effective Dates [...] Effective Dates Health Status Clinical Service Informant Body mass index [BMI] 26.0-26.9, adult Discharge Diagnosis 04/17/24 Non-Specified HLD (hyperlipidemia) Discharge Diagnosis 04/17/24 Non-Specified Hypertensive response to exercise Discharge Diagnosis 04/17/24 Non-Specified Abnormal LFTs Discharge Diagnosis 04/17/24 Non-Specified Procedures Procedure Date Related Diagnosis Body [...] PCP 4Left Middle Trigger Digit Release 5[facility] Impression: 1 Normal contractile response of the gallbladder to Kinevac infusion 2.Normal biliary imaging study 6[facility] Impression: 1. No significant abnormality identified within the right upper quadrant 7[facility] Impression: ACR BI-RADS CATEGORY 2: BENIGN 1. No evidence of malignancy 8[facility] Impression: 1. No acute abnormalities and in particular no radiographic evidence of pneumonia 9[facility] Impression: 1. Posterior vitreous detachment OD. 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 Treated proliferative diabetic retinopathy OD. Good PRP 4. Treated proliferative diabetic retinopathy OS. Good PRP 5. Chronic vitreous hemorrhage OD 6. Nuclear sclerosis OU 10[facility] Impression: 1. Unremarkable esophagram 11[facility] Impression: ACR BI-RADS CATEGORY 1: NEGATIVE 1. No evidence of malignancy 12No acute abnormalities and in particular no evidence of pneumonia 13Left Carpal Tunnel Syndrome 14Left 15[facility] Imp[facility]: ACR BI-RADS CATEGORY 2: BENIGN 1. No evidence of malignancy 17[facility] Impression: 1. Diabetes, Type 1 [...] examined duodenum Await pathology results. 19[facility] Impression: 1. DM Type 1 with ocular complications 2. Proliferative diabetic retinopathy OD 3. Treated proliferative diabetic retinopathy OS. Quiescent post PRP 4. Nuclear sclerosis OU 20[facility] Impression: 1. Trace layering gallbladder sludge. No cholelithiasis or sonographic evidence of acute cholecystitis 2. No biliary ductal dilation 21IMPRESSION: No active disease in the chest. 22right 23May- 24left shoulder 25PROCEDURE: 1. Arthroscopic capsular release. 2. Arthroscopic subacromial decompression. 3. Manipulation of shoulder. 26left eye 27PRP LE 10/15/03, 11/08/03 and 12/03/03 Vital Signs Most recent to oldest [Reference Range]: 1 Height 175 cm (04/17/24 3:26 PM) Patient Weight 80.6 kg (04/17/24 3: PM) Body Mass Index 26.32 kg/m2 (04/17/24 3: PM) Heart Rate 76 bpm (04/17/24 3: PM) Respiratory Rate 18 br/min (04/17/24 3: PM) Blood Pressure 122/68mmHg (04/17/24 3:26 PM) BP Location # 1 Left Arm, Right Arm (04/17/24 3:26 PM) Social History Social History Type Response Tobacco Former smoker, Cigar ettes, 0.5 per day. 24 year(s). Started age 16 Years. Stopped age 40 Years. Smoking Status Former Smoker, quit > 1 yr Sex Female Sex Representation Female (finding) Cardiology Outpatient Note * LOU Roberts Sarah A: PERFORM, MODIFY Event Display: Cardiology Outpt Note Authored Date: Primary Care Provider ELVIA Humphrey, Irena Balderas Chief Complaint -labs - Palpations 3-4x week no change SOB with exertion tried - denies resent chest pain/ tightness, no heart racing no dizziness or light headedness, no edema ,No resent ER visits History of Present Illness Ms. Salgado presents for follow up of her hypertensive response to exercise and hld. Her home diastolics have been high.She continues to ride an exercise bike for exercise and walks on the treadmill. She did try taking 25 mg of the Toprola couple of times which helped. No chest pain, no sob. Review of Systems All other systems reviewed and negative except as discussed in the HPI Physical Exam Vitals & Measurements HR:76(Monitored) RR:18 BP:122/68 SpO2:98% HT:175cm WT:80.600kg(Dosing) WT:80.6kg BMI:26.32 Physical Examination General: Alert and oriented, No acute distress. Respiratory: Lungs are clear to auscultation, Respirations are non-labored. Cardiovascular: Normal rate, Regular rhythm, No murmur, No edema, no carotid bruits to auscultation bilaterally. Integumentary: Warm, Dry, Carefree Neurologic: Alert, Oriented. Cognition and Speech: Speech clear and coherent. Psychiatric: Cooperative, Appropriate mood & affect. Assessment/Plan Impression: 1. LYNCH 2. Hypertensive response to exercise on stress test 2022 3. Edema 4. Stress echo 2022 with EF 65-70%, grade II diastolic dysfunction, mild tricuspid regurgitation, unchanged from 2018 echo 5. Hx tobacco use Ms. Salgado does feel better with addition of 25 mg metoprolol and I suggested she go ahead and take it every day which she is agreeable to. She will bring her bp cuff into work and have one of the nurses check it against a manual given theelevated diastolics. Her blood pressure is controlled today. Her edema is controlled with the furosemide. Her LDL is at goal. She did have a mildly elevated AST which she thought may be due to more alcoholconsumption in February. She has orders from GI for a recheck. She will return to the clinic in 6 months. Problem List/Past Medical History Ongoing Adhesive capsulitis [...] 2Barium swallow| Service Date: 01/27/2022Mammogram| Service Date: 10/16/2021hest x-ray| Service Date: 09/19/2021arpal tunnel release| Service Date: 04/10/2021arpal tunnel| Service Date: 1Papanicolaou smeartaken| Service Date: 12/25/2020Mammogram| Service Date: 1Diabetic retinal eye exam| Service Date: 07/08/2020Upper GI [...] tid, PRN, 1 refills diabetes supplies(FreeStyle Lite Test Strips 100 ct), See Instructions, 3 refills diabetes supplies(FreeStyle Lite Glucose Monitor), See Instructions, 1 refills diclofenac(diclofenac sodium 75 mg oral delayed [...] units/mL injectable solution), See Instructions, 3 refills insulin lispro(HumaLOG Vial 100 units/mL injectable solution), See Instructions ipratropium nasal(ipratropium 42 mcg/inh (0.06%) nasal spray), 2 spray, each nostril, tid, PRN, 2 refills liraglutide(liraglutide (Victoza) 18 mg/3 mL subcutaneous solution), See Instructions, subQ, Daily,3 refills losartan(losartan 100 mg oral tablet), 100 mg= 1 tab, PO, Daily, 3 refills metoprolol(Toprol-XL 25 mg oral tablet, extended release), See Instructions pravastatin(pravastatin 10 mg oral tablet), See Instructions, 3 refills rOPINIRole(rOPINIRole 0.25 mg oral tablet), 0.25 mg= 1 tab, PO, Daily, 3 refills syringe needles(BD needle Ultra-Fine Pen [...] refills Allergies NKA Social History Smoking Status Former Smoker, quit > 1 yr Alcohol Use:Current Type:Beer, Wine, Liquor Frequency:Daily Average drinks per episode in last year:1 Employment/School Status:Employed Description:[employer] Exercise - Occasional exercise Times per week:3-4 [...] years:22 Started at age:16Years Stopped at age:40Years Family History Anorexia: Mother. Bipolar: Mother. CAD (coronary artery disease): Father. Cardiac amyloidosis: Father. Depression.: Mother. Diabetes: Father. Eating disorder: Mother. Heart attack: Father. High Blood Pressure: Father. Macular degeneration, age related....: Father. Parkinson disease: Mother. Seizure: Mother. Health Status Family Member(s) Electronic Signature on File CC: Irena Humphrey PA-C,[facility] [address] [employer] [facility] [employer] [facility] [address] [place] [id number] Electronically Reviewed/Signed by: LOU Christensen Author Signature Dt/Tm:04/17/2024 03:58 PM [facility] [place] [facility] Patient Care team information Care Team Personnel Name: MD Servando, Letty Helm Position: Physician - Gastro Member Role: Lifetime Relationship Address: [address] [place] [id number] [place] Name: RANDALL Negron Melissa Position: Certified Executive Chef Member Role: Certified Executive Chef Name: MD Mickey, Isis Silva Position: Physician - Internal Med Member Role: Lifetime Relationship Address: [address] [place] [id number] [place] Name: ELVIA Humphrey, Irena Balderas Position: Physician Asst Nunez - Family Med Member Role: Primary Care Provider Address: [address] [place] [address] [address] [place] [address] [place] Care Team Related Persons Name: ELAINE SALGADO Name: ELAINE SALGADO"
--- OUTSIDE RECORDS SUMMARY | 2024-07-16 10:18 | External Medical Summary | Continuity of Care Document ---
Author Name Unknown Organization [address] [place] [phone] Care Team Providers Care Freight And Passenger Agent Name Role Phone DavidIrena montez Andrey Primary Care Physician [phone] [phone] Date[facility]s): 04/19/24 - 04/19/24 [facility] [address] [facility] 1850 [facility] 207 [place] [address] [phone] Encounter Diagnosis Pharyngitis(Discharge Diagnosis) - 04/19/24 Acute pharyngitis, unspecified(Final) - Discharge Disposition: Home or Self Care Attending Physician: ELVIA Fleming Kimberly A Allergies, Adverse Reactions, Alerts No Known Allergies Assessment and Plan Extracted from: Title:Office Visit Note Author:ELVIA Fleming Kim berly A Date:04/19/24 Pharyngitis STATUS:Acute, uncomplicated illness/injury DATA:Labs reviewed. GOAL:Maintain stability. PLAN:Cont current monitoring. RSS collected in office and sent for culture Will send in Augmentin 875mg twice daily if symptoms worsen rapidly. Encouraged patient to rest, increase clear fluids, and wash hands frequently to avoid transmission.Recommended trying OTC saline nasal spray, salt water gargles, or Mucinex. Advised her to return to the office if symptoms persist or worsen after 7-10 days, or if she develops a fever over 101 F, shortness of breath or wheezing. . Immunizations Given and Recorded Vaccine Date Status Refusal Reason SARS-CoV-2 (COVID-19) mRNA-vacc - [id number] 02/03/24 Recorded influenza virus vaccine, inactivated 01/31/24 [...] 3, PRN: as needed for wheezing, Pharmacy: [facility] (90 Day Supply) Start Date: 05/25/23 Stop Date: 05/19/24 Status: Ordered Augmentin 875 mg-125 mg oral tablet Start: 04/19/24 3:00:00 PM EST, amoxicillin 1 tab, PO, q12h, Disp# 10, Pharmacy: [facility]/pharmacy #[id number] Start Date: 04/19/24 Stop Date: 04/24/24 Status: Ordered azelastine 137 mcg/inh (0.1%) nasal spray Start: 09/19/21 10:39:00 AM EDT, See Instructions, Disp# 3 each, Refills: 3, MAY USE 1 TO 2 SPRAYS IN EACH NOSTRIL EVERY 12 HOURS FOR SINUS CONGESTION, MAY USE WITH FLUTICASONE IF NEEDED FOR ALLERGY SYMPTOMS, Pharmacy: [facility] (90 Day Supply) Start Date: 09/19/21 Status: Ordered BACLOFEN 10 MG TABLET Start: 11/17/23 10:16:00 AM EDT, BACLOFEN 10 MG TABLET, 0.5 tab, PO, tid, Disp# 15 tab, Refills: 1, Pharmacy [id number] Start Date: 11/17/23 Stop Date: 11/27/23 Status: Ordered Baqsimi 3 mg nasal powder Start: 03/14/19 10:07:00 AM EST, 1 inh, intranasal, ONCE, Disp# 2 packet, Refills: 3, PRN: as neededfor severe hypoglycemia, Pharmacy: [facility]/pharmacy #[id number], Supply Start Date: 03/14/19 Status: Ordered BD needle Ultra-Fine Pen Zora 32G x 4mm Start: 06/19/16 2:00:00 PM EST, See Instructions, Disp# 1 box, Refills: 3, to use with Victoza pen daily, Pharmacy: [facility]/pharmacy #[id number] Start Date: 06/19/16 Status: Ordered diclofenac sodium 75 mg oral delayed release tablet Start: 08/30/23 8:16:00 AM EDT, 1 tab, PO, bid, Disp# 180 tab, Refills: 3, PRN: as needed for pain, Pharmacy: [facility] (90 Day Supply) Start Date: 08/30/23 Stop Date: 08/24/24 Status: Ordered escitalopram 20 mg oral tablet Start: 12/27/23 7:15:00 AM EDT, 1 tab, PO, Daily, Disp# 90 tab, Refills: 3, Pharmacy: [facility] Start Date: 12/27/23 Status: Ordered Flexeril 5 mg oral tablet Start: 03/28/24 8:03:00 AM EST, 1 tab, PO, tid, Disp# 21 tab, Refills: 1, PRN: as needed for spasm,Pharmacy: [facility]/pharmacy #[id number] Start Date: 03/28/24 Stop Date: 04/11/24 Status: Ordered FreeStyle Lite Glucose Monitor Start: 10/31/19 9:06:00 AM EDT, See Instructions, Disp# 1 kit, Refills: 1, use to check glucose 4 x daily, Pharmacy: [facility] (90 Day Supply) Start Date: 10/31/19 Status: Ordered FreeStyle Lite Test Strips 100 ct Start: 05/25/23 8:14:00 AM EST, See Instructions, Disp# 300 each, Refills: 3, check BG 4 x daily, Pharmacy: [facility] ( Day Supply) Start Date: 05/25/23 Status: Ordered furosemide 20 mg oral tablet Start: 08/30/23 8:16:00 AM EDT, 1 tab, PO, Daily, Disp# 90 tab, Refills: 3, Note to Pharmacy: discontinue hCTZ, Pharmacy: [facility] ( Day Supply) Start Date: 08/30/23 Status: Ordered gabapentin 300 mg oral capsule Start: 12/27/23 11:50:00 AM EDT, 1 cap, PO, qhs, Disp# 90 unknown unit, Refills: 3, Pharmacy: [facility] Start Date: 12/27/23 Status: Ordered HumaLOG Vial 100 units/mL injectable solution Start: 01/26/24 2:59:00 PM EDT, See Instructions, Disp# 10 mL, Refills: 0, up to 70U SQ daily via insulin pump, Pharmacy: [facility]/pharmacy #[id number] Start Date: 01/26/24 Status: Ordered ipratropium 42 mcg/inh (0.06%) nasal spray Start: 10/29/23 3:25:00 PM EDT, 2 spray, each nostril, tid, Disp# 1 each, Refills: 2, PRN: as neededfor cold symptoms, Pharmacy: [facility]/pharmacy #[id number] Start Date: 10/29/23 Status: Ordered liraglutide (Victoza) 18 mg/3 mL subcutaneous solution Start: 11/23/23 8:22:00 AM EDT, See Instructions, subQ, Daily, Disp# 6 mL, Refills: 3, Inject 0.6 mgsubQ daily for one week then increase to 1.2 mg daily. Inject under the skin in the upper arm, thigh, or abdomen. Rotate injection sites., Pharmacy: [facility] ( Day Supply) Start Date: 11/23/23 Status: Ordered losartan 100 mg oral tablet Start: 03/30/24 9:32:00 AM EST, 1 tab, PO, Daily, Disp# 90 tab, Refills: 3, Pharmacy: [facility] (90 Day Supply) Start Date: 03/30/24 Status: Ordered NovoLOG 100 units/mL injectable solution Start: 05/25/23 8:14:00 AM EST, See Instructions, Disp# 70 mL, Refills: 3, USING UP TO 70 UNITS SUBCUTANEOUSLY DAILY VIA INSULIN PUMP, Pharmacy: [facility] ( Day Supply) Start Date: 05/25/23 Status: Ordered pravastatin 10 mg oral tablet Start: 08/30/23 8:15:00 AM EDT, See Instructions, Disp# 90 tab, Refills: 3, TAKE ONE TABLET BY MOUTHDAILY AT BEDTIME, Pharmacy: [facility] ( Day Supply) Start Date: 08/30/23 Status: Ordered Prempro 0.45 mg-1.5 mg oral tablet Start: 06/08/22 8:56:00 AM EST, 1 tab, PO, Daily Start Date: 06/08/22 Status: Ordered rOPINIRole 0.25 mg oral tablet Start: 08/30/23 8:17:00 AM EDT, 1 tab, PO, Daily, Disp# 90 tab, Refills: 3, Pharmacy: [facility] ( Day Supply) Start Date: 08/30/23 Stop Date: 08/24/24 Status: Ordered spacer for use w inhaler Start: 04/29/18 12:11:00 PM EST, spacer for use w inhaler, eRx Product Type: Supply, See Instructions, Disp# 1 unit, Spacer to use with inhaler, Pharmacy [facility]/pharmacy #[id number] Start Date: 04/29/18 Status: Ordered Toprol-XL 25 mg oral tablet, extended release Start: 11/12/23 11:39:00 AM EDT, See Instructions, Disp# 90 tab, Refills: 0, 1 tab PO Daily PRN priorto exercise, Pharmacy: [facility]/pharmacy #[id number] Start Date: 11/12/23 Status: Ordered traZODone 150 mg oral tablet Start: 08/30/23 8:15:00 AM EDT, 0.5 tab, PO, qhs, Disp# 45 tab, Refills: 3, Pharmacy: [facility] (90 Day Supply) Start Date: 08/30/23 Status: Ordered unlisted medication Start: 07/19/15 8:39:00 AM EST, ketone strips, eRx Product Type: Supply, See Instructions, Disp# 1 box, Refills: 3, use as directed for hyperglycemia, Pharmacy [facility] (90 Day Supply) Start Date: 07/19/15 Status: Ordered valACYclovir 500 mg oral tablet Start: 07/05/19 8:07:00 AM EST, 1 tab, PO, Daily, Disp# 90 tab, Refills: 3, Pharmacy: [facility] (90 Day Supply) Start Date: 07/05/19 Status: Ordered Mental Status 04/19/24 Barriers to Learning one year None evide nt Mandatory Health Literacy Documentation Yes Health Literacy Communication Barriers N ever Primary Language Filipino Problem List Condition Confirmation Course Effective Dates [...] Dates Health Status Clini yasmine Service Informant Pharyngitis Discharge Diagnosis 04/19/24 Non-Specified Procedures Procedure Date Related Diagnosis Body [...] PCP 4Left Middle Trigger Digit Release 5[facility] Impression: 1 Normal contractile response of the gallbladder to Kinevac infusion 2.Normal biliary imaging study 6[facility] Impression: 1. No significant abnormality identified within the right upper quadrant 7[facility] Impression: ACR BI-RADS CATEGORY 2: BENIGN 1. No evidence of malignancy 8[facility] Impression: 1. No acute abnormalities and in particular no radiographic evidence of pneumonia 9[facility] Impression: 1. Posterior vitreous detachment OD. 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 Treated proliferative diabetic retinopathy OD. Good PRP 4. Treated proliferative diabetic retinopathy OS. Good PRP 5. Chronic vitreous hemorrhage OD 6. Nuclear sclerosis OU 10[facility] Impression: 1. Unremarkable esophagram 11[facility] Impression: ACR BI-RADS CATEGORY 1: NEGATIVE 1. No evidence of malignancy 12No acute abnormalities and in particular no evidence of pneumonia 13Left Carpal Tunnel Syndrome 14Left 15[facility] 16[facility] Impression: ACR BI-RADS CATEGORY 2: BENIGN 1. No evidence of malignancy 17[facility] Impression: 1. Diabetes, Type 1 [...] stomach Normal examined duodenum Await pathology results. 19[facility] Impression: 1. DM Type 1 with ocular complications 2. Proliferative diabetic retinopathy OD 3. Treated proliferative diabetic retinopathy OS. Quiescent post PRP 4. Nuclear sclerosis OU 20[facility] Impression: 1. Trace layering gallbladder sludge. No cholelithiasis or sonographic evidence of acute cholecystitis 2. No biliary ductal dilation 21IMPRESSION: No active disease in the chest. 22right 23May- 24left shoulder 25PROCEDURE: 1. Arthroscopic capsular release. 2. Arthroscopic subacromial decompression. 3. Manipulation of shoulder. 26left eye 27PRP LE 10/15/03, 11/08/03 and 12/03/03 Results Laboratory List Name Date Rapid Strep POC Outpt. 04/19/24 Most recent to oldest [Reference Range]: 1 Rapid Strep Screen, POC Negative 1 (04/19/24 4:07 PM) Rapid Strep Screen Ref Range [negative] (04/19/24 4:07 PM) Culture sent to lab for confirmation Yes (04/19/24 4:07 PM) 1Result Comment: Performed at: [facility], [address], [address], [place] [address] Orders for Microbiology Reports Name Date Throat Culture for Group A Strep (CULTUR E, GRP A STREP) 04/19/24 Microbiology Reports TEST:Throat.Scr STATUS:Unauthenticated BODY SITE: SOURCE:Throat COLLECTED DATE/TIME:04/19/24 2:59 PM Culture Culture in Progress Vital Signs Most recent to oldest [Reference Range]: 1 Temperature [36.5-37.9 DegC] 36.8 DegC (04/19/24 2:40 PM) Heart Rate 80 bpm (04/19/24 2:40 PM) Respiratory Rate 18 br/min (04/19/24 2:40 PM) Blood Pressure 138/68mmHg (04/19/24 2:40 PM) Cuff Pulse Pressure 70 mmHg (04/19/24 2:40 PM) Social History Social History Type Response Tobacco Former smoker, Cigar ettes, 0.5 per day. 24 year(s). Started age 16 Years. Stopped age 40 Years. Smoking Status Former Smoker, quit > 1 yr Sex Female Sex Representation Female (finding) FCM Outpt Note * ELVIA Fleming, Ani Balderas: PERFORM Event Display: [facility]CM Outpt Note Authored Date: [id number] Assessment/Plan Pharyngitis STATUS:Acute, uncomplicated illness/injury DATA:Labs reviewed. GOAL:Maintain stability. PLAN:Cont current monitoring. RSS collected in office and sent for culture Will send in Augmentin 875mg twice daily if symptoms worsen rapidly. Encouraged patient to rest, increase clear fluids, and wash hands frequently to avoid transmission.Recommended trying OTC saline nasal spray, salt water gargles, or Mucinex. Advised her to returnto the office if symptoms persist or worsen after 7-10 days, or if she develops a fever over 101 F,shortness of breath or wheezing. . Chief Complaint Sore throat, red, chills (no fever), some nausea since last night. History of Present Illness Patient is a 53yo female presenting to clinic for acute visit. Sore throat: -Started abruptly last night -Feels like she is swallowing razor blades -Does have a lingering headache but relates that it may be secondary to a new medication -Has been also having some chills but no fevers as well as some nausea -Denies any nasal or chest congestion, cough or SOB. Review of Systems ROS per HPI Physical Exam Vitals & Measurements T:36.8C HR:80(Monitored) RR:18 BP:138/68 SpO2:99% PHQ2 Data(Data Documented on:04/19/2024 14:38) Emotional health assessment NEGATIVE Gen Appearance: Well developed, well nourished female. Appears sick. Congested. HEENT: NCAT. PERRL. EOMI. Conjunctiva clear. Tympanic membranes are shiny with good light reflex. Not injected. External nose is with erythema. Turbinates are swollen and nares are withclear drainage bilaterally. Oropharynx erythematous with marked cobblestoning Neck: Supple. No thyromegaly palpable. Lymph: No submandibular, posterior or anterior cervical adenopathy. CV: Tachycardic. Regular rhythm. No murmurs, rubs, or gallops audible. No LE edema. Lungs: CTAB. No wheezing, rales or rhonchi. Chest rises symmetrically. Abdomen: Scaphoid. No rashes. NABSx4. Soft. Non-tender. No CVA tenderness bilaterally. No masses palpable. Ext: No LE edema. + 2 posterior tibial and dorsalis pedis pulses. Skin: [place]. Supple. Good turgor. Problem List/Past Medical History Ongoing Adhesive capsulitis [...] Service Date: 09/19/2021arpal tunnel release| Service Date: 1Carpal tunnel| Service Date: 1Papanicolaou smeartaken| Service Date: [...] per episode in last year:1 Employment/School Status:Employed Description:[employer] Exercise - Occasional exercise Times per week:3-4 [...] Vaccine Date Status SARS-CoV-2 (COVID-19) mRNA-vacc - [id number] 02/03/2024 Recorded influenza virus vaccine, inactivated 01/31/2024 [...] Maintenance Pending(in the next year) Due Adult COVID-19 Vaccination due04/19/24Unknown Frequency Adult Social Determinants of Health Screening due04/19/24Unknown Frequency Hepatitis C Screening due04/19/24One-time only Shingles Vaccine due04/19/24One-time only Due In Future Diabetic Eye Exam not due until09/20/24and every 366day Adult Influenza Vaccine not due until11/06/24and every 1year Diabetes Management A1c not due until11/17/24and every 366day Body Mass Index not due until04/18/25and every 366day Satisfied(in the past 1 year) Satisfied Adult Influenza Vaccine on01/31/24.Satisfied by KENYON Forbes Paul Body Mass Index on04/17/24.Satisfied by KENYON Phelan Kim Breast Cancer Screening on10/22/23.Satisfied by KENYON Diez Andrew E Diabetes Management A1c on11/17/23.Satisfied by Contributor_system, [email or web address] Diabetes Nephropathy Management on11/17/23.Satisfied by Contributor[employer]system, [id number] Diabetic Eye Exam on09/20/23.Satisfied by МАРИНА Burch Lynnae Lipid Screening on04/11/24.Satisfied by Contributor[employer]system, [email or web address] Electronic Signature on File Electronically Reviewed/Signed by: Ani Fleming PA-C Author Signature Dt/Tm:04/19/2024 03:08 PM Department of Family Medicine [facility] Patient Care team information Care Team Personnel Name: MD Servando, Letty Helm Position: Physician - Gastro Member Role: Lifetime Relationship Address: [address] [place] [phone] [place] Name: RANDALL Negron, Deepika Position: Acute Care Nurse Practitioner Member Role: Acute Care Nurse Practitioner Name: MD Mickey, Isis Silva Position: Physician - Internal Med Member Role: Lifetime Relationship Address: [address] [place] [phone] [place] Name: ELVIA Humphrey, Irena Balderas Position: Physician Asst Exmpt - Family Med Member Role: Primary Care Provider Address: [address] [place] [address], [place] [address] Care Team Related Persons Name: ELAINE SALGADO Name: ELAINE SALGADO"
--- OUTSIDE RECORDS SUMMARY | 2024-07-16 10:18 | External Medical Summary | Continuity of Care Document ---
Author Name Unknown Organization [address] [place] [id number] Care Team Providers Care Mechanical Systems Design Engineer Name Role Phone DavidIrena montez Andrey Primary Care Physician [phone] Encounter [facility] [id number] Date(s): 04/11/24 - 04/11/24 [facility] 0 [facility] 207 [facility] [address] [address] [phone] Encounter Diagnosis Body mass index [BMI] 27.0-27.9, adult(Discharge Diagnosis) - 04/11/24 Left shoulder pain(Discharge Diagnosis) - 04/11/24 Discharge Disposition: Home or Self Care Attending Physician: MD Jordan Christopher Referring Physician: MD Jordan Christopher Allergies, Adverse Reactions, Alerts No Known Allergies Assessment and Plan Extracted from: Title:FCM - Left shoulder pain Author:MD Sondra , Kimberley Date:04/11/24 Body mass index [BMI] 27.0-2 7.9, adult Left shoulder pain Undifferentiated new problem with uncertain prognosis Goal: Resolution Data:unique tests ordered: _XR Shoulder Plan: Signs of labral instability and rotator cuff involvement. Likely multifactorial in nature. Imaging to r/o chronic dislocation and eval forarthritis. If significant arthritis could do a joint injection here in office. Did give referral for PT and an orthoreferral. Will contact patient with results and next steps. Immunizations Given and Recorded Vaccine Date Status Refusal Reason SARS-CoV-2 (COVID-19) mRNA-vacc - [id number] 02/03/24 Recorded influenza virus vaccine, inactivated 01/31/24 [...] 3, PRN: as needed for wheezing, Pharmacy: [facility] (90 Day Supply) Start Date: 05/25/23 Stop Date: 05/19/24 Status: Ordered azelastine 137 mcg/inh (0.1%) nasal spray Start: 09/19/21 10:39:00 AM EDT, See Instructions, Disp# 3 each, Refills: 3, MAY USE 1 TO 2 SPRAYS IN EACH NOSTRIL EVERY 12 HOURS FOR SINUS CONGESTION, MAY USE WITH FLUTICASONE IF NEEDED FOR ALLERGY SYMPTOMS, Pharmacy: [facility] (90 Day Supply) Start Date: 09/19/21 Status: Ordered BACLOFEN 10 MG TABLET Start: 11/17/23 10:16:00 AM EDT, BACLOFEN 10 MG TABLET, 0.5 tab, PO, tid, Disp# 15 tab, Refills: 1, Pharmacy [id number] Start Date: 11/17/23 Stop Date: 11/27/23 Status: Ordered Baqsimi 3 mg nasal powder Start: 03/14/19 10:07:00 AM EST, 1 inh, intranasal, ONCE, Disp# 2 packet, Refills: 3, PRN: as neededfor severe hypoglycemia, Pharmacy: [facility]/pharmacy #[id number], Supply Start Date: 03/14/19 Status: Ordered BD needle Ultra-Fine Pen Zora 32G x 4mm Start: 06/19/16 2:00:00 PM EST, See Instructions, Disp# 1 box, Refills: 3, to use with Victoza pen daily, Pharmacy: [facility]/pharmacy #[id number] Start Date: 06/19/16 Status: Ordered diclofenac sodium 75 mg oral delayed release tablet Start: 08/30/23 8:16:00 AM EDT, 1 tab, PO, bid, Disp# 180 tab, Refills: 3, PRN: as needed for pain, Pharmacy: [facility] (90 Day Supply) Start Date: 08/30/23 Stop Date: 08/24/24 Status: Ordered escitalopram 20 mg oral tablet Start: 12/27/23 7:15:00 AM EDT, 1 tab, PO, Daily, Disp# 90 tab, Refills: 3, Pharmacy: [facility] Start Date: 12/27/23 Status: Ordered Flexeril 5 mg oral tablet Start: 03/28/24 8:03:00 AM EST, 1 tab, PO, tid, Disp# 21 tab, Refills: 1, PRN: as needed for spasm,Pharmacy: [facility]/pharmacy #[id number] Start Date: 03/28/24 Stop Date: 04/11/24 Status: Ordered FreeStyle Lite Glucose Monitor Start: 10/31/19 9:06:00 AM EDT, See Instructions, Disp# 1 kit, Refills: 1, use to check glucose 4 x daily, Pharmacy: [facility] (90 Day Supply) Start Date: 10/31/19 Status: Ordered FreeStyle Lite Test Strips 100 ct Start: 05/25/23 8:14:00 AM EST, See Instructions, Disp# 300 each, Refills: 3, check BG 4 x daily, Pharmacy: [facility] (90 Day Supply) Start Date: 05/25/23 Status: Ordered furosemide 20 mg oral tablet Start: 08/30/23 8:16:00 AM EDT, 1 tab, PO, Daily, Disp# 90 tab, Refills: 3, Note to Pharmacy: discontinue hCTZ, Pharmacy: [facility] ( Day Supply) Start Date: 08/30/23 Status: Ordered gabapentin 300 mg oral capsule Start: 12/27/23 11:50:00 AM EDT, 1 cap, PO, qhs, Disp# 90 unknown unit, Refills: 3, Pharmacy: [facility] Start Date: 12/27/23 Status: Ordered HumaLOG Vial 100 units/mL injectable solution Start: 01/26/24 2:59:00 PM EDT, See Instructions, Disp# 10 mL, Refills: 0, up to 70U SQ daily via insulin pump, [id number] Start Date: 01/26/24 Status: Ordered ipratropium 42 mcg/inh (0.06%) nasal spray Start: 10/29/23 3:25:00 PM EDT, 2 spray, each nostril, tid, Disp# 1 each, Refills: 2, PRN: as neededfor cold symptoms, Pharmacy: [facility]/pharmacy #[id number] Start Date: 10/29/23 Status: Ordered liraglutide (Victoza) 18 mg/3 mL subcutaneous solution Start: 11/23/23 8:22:00 AM EDT, See Instructions, subQ, Daily, Disp# 6 mL, Refills: 3, Inject 0.6 mgsubQ daily for one week then increase to 1.2 mg daily. Inject under the skin in the upper arm, thigh, or abdomen. Rotate injection sites., Pharmacy: [facility] ( Day Supply) Start Date: 11/23/23 Status: Ordered losartan 100 mg oral tablet Start: 03/30/24 9:32:00 AM EST, 1 tab, PO, Daily, Disp# 90 tab, Refills: 3, Pharmacy: [facility] ( Day Supply) Start Date: 03/30/24 Status: Ordered NovoLOG 100 units/mL injectable solution Start: 05/25/23 8:14:00 AM EST, See Instructions, Disp# 70 mL, Refills: 3, USING UP TO 70 UNITS SUBCUTANEOUSLY DAILY VIA INSULIN PUMP, Pharmacy: [facility] (90 Day Supply) Start Date: 05/25/23 Status: Ordered pravastatin 10 mg oral tablet Start: 08/30/23 8:15:00 AM EDT, See Instructions, Disp# 90 tab, Refills: 3, TAKE ONE TABLET BY MOUTHDAILY AT BEDTIME, Pharmacy: [facility] ( Day Supply) Start Date: 08/30/23 Status: Ordered Prempro 0.45 mg-1.5 mg oral tablet Start: 06/08/22 8:56:00 AM EST, 1 tab, PO, Daily Start Date: 06/08/22 Status: Ordered rOPINIRole 0.25 mg oral tablet Start: 08/30/23 8:17:00 AM EDT, 1 tab, PO, Daily, Disp# 90 tab, Refills: 3, Pharmacy: [facility] ( Day Supply) Start Date: 08/30/23 Stop Date: 08/24/24 Status: Ordered spacer for use w inhaler Start: 04/29/18 12:11:00 PM EST, spacer for use w inhaler, eRx Product Type: Supply, See Instructions, Disp# 1 unit, Spacer to use with inhaler, Pharmacy [facility]/pharmacy #[id number] Start Date: 04/29/18 Status: Ordered Toprol-XL 25 mg oral tablet, extended release Start: 11/12/23 11:39:00 AM EDT, See Instructions, Disp# 90 tab, Refills: 0, 1 tab PO Daily PRN priorto exercise, Pharmacy: [facility]/pharmacy #[id number] Start Date: 11/12/23 Status: Ordered traZODone 150 mg oral tablet Start: 08/30/23 8:15:00 AM EDT, 0.5 tab, PO, qhs, Disp# 45 tab, Refills: 3, Pharmacy: [facility] ( Day Supply) Start Date: 08/30/23 Status: Ordered unlisted medication Start: 07/19/15 8:39:00 AM EST, ketone strips, eRx Product Type: Supply, See Instructions, Disp# 1 box, Refills: 3, use as directed for hyperglycemia, Pharmacy [facility] ( Day Supply) Start Date: 07/19/15 Status: Ordered valACYclovir 500 mg oral tablet Start: 07/05/19 8:07:00 AM EST, 1 tab, PO, Daily, Disp# 90 tab, Refills: 3, Pharmacy: [facility] (90 Day Supply) Start Date: 07/05/19 Status: Ordered Mental Status 04/11/24 Barriers to Learning one year None evide nt Problem List Condition Confirmation Course Effective Dates [...] Diagnosis Diagnosis Type Effective Dates Health Status Cl inical Service Informant Body mass index [BMI] 27.0-27.9, adult Discharge Diagnosis 04/11/24 Non-Specified Left shoulder pain Discharge Diagnosis 04/11/24 Non-Specified Procedures Procedure Date Related Diagnosis Body [...] from buttocks 1983 Completed Laser surgery 26, Comp leted 1A) Duodenum, biopsy: No significant [...] PCP 4Left Middle Trigger Digit Release 5[facility] Impression: 1 Normal contractile response of the gallbladder to Kinevac infusion 2.[facility]: 1. No significant abnormality identified within the right upper quadrant 7[facility] Impression: ACR BI-RADS CATEGORY 2: BENIGN 1. No evidence of malignancy 8[facility] Impression: 1. No acute abnormalities and in particular no radiographic evidence of pneumonia 9[facility] Impression: 1. Posterior vitreous detachment OD. 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 Treated proliferative diabetic retinopathy OD. Good PRP 4. Treated proliferative diabetic retinopathy OS. Good PRP 5. Chronic vitreous hemorrhage OD 6. Nuclear sclerosis OU 10[facility] Impression: 1. Unremarkable esophagram 11[facility] Impression: ACR BI-RADS CATEGORY 1: NEGATIVE 1. No evidence of malignancy 12No acute abnormalities and in particular no evidence of pneumonia 13Left Carpal Tunnel Syndrome 14Left 15[facility] 16[facility] Impression: ACR BI-RADS CATEGORY 2: BENIGN [...] stomach Normal examined duodenum Await pathology results. 19[facility] Impression: 1. DM Type 1 with ocular complications 2. Proliferative diabetic retinopathy OD 3. Treated proliferative diabetic retinopathy OS. Quiescent post PRP 4. Nuclear sclerosis OU 20[facility] Impression: 1. Trace layering gallbladder sludge. No cholelithiasis or sonographic evidence of acute cholecystitis 2. No biliary ductal dilation 21IMPRESSION: No active disease in the chest. 22right 23May- 24left shoulder 25PROCEDURE: 1. Arthroscopic capsular release. 2. Arthroscopic subacromial decompression. 3. Manipulation of shoulder. 26left eye 27PRP LE 10/15/03, 11/08/03 and 12/03/03 Vital Signs Most recent to oldest [Reference Range]: 1 Height 173.3 cm (04/11/24 9:05 AM) Patient Weight 83.2 kg (04/11/24 9:05 AM) Body Mass Index 27.7 kg/m2 (04/11/24 9:05 AM) Temperature [36.5-37.9 DegC] 37 DegC (04/11/24 9:05 AM) Heart Rate 82 bpm (04/11/24 9:05 AM) Respiratory Rate 16 br/min (04/11/24 9:05 AM) Blood Pressure 132/76mmHg (04/11/24 9:05 AM) Social History Social History Type Response Tobacco Former smoker, Cigar ettes, 0.5 per day. 24 year(s). Started age 16 Years. Stopped age 40 Years. Smoking Status Former Smoker, quit > 1 yr Sex Female Sex Representation Female (finding) FCM Outpt Note * MD Jordan Christopher: MODIFY MD Jordan Christopher: MODIFY Event Display: FCM Outpt Note Authored Date: Assessment/Plan Body mass index [BMI] 27.0-27.9, adult Left shoulder pain Undifferentiated new problem with uncertain prognosis Goal: Resolution Data:unique tests ordered: _XR Shoulder Plan: Signs of labral instability and rotator cuff involvement. Likely multifactorial in nature.Imaging to r/o chronic dislocation and eval forarthritis. If significant arthritis could do a joint injection here in office. Did give referral for PT and an orthoreferral. Will contact patient wi th results and next steps. Attestation Patient's case reviewed in detail with Dr. Amaro, agree with detail of history and physical as documented above. Plan reviewed in detail with providing resident physician. Chief Complaint Shoulder pain. taking diclofenac BID 10 days, ice, some exercizes. History of Present Illness 53 y/owith a PMHx ofTIDM and multiplepriorMSK concerns here forevaluationof left shoulderpain. Patient with pain in the left shoulder.Has hadthis before but itresolvedwith diclofenac.Has beentakingdiclofenacBID for10 days, butsymptoms persist. No falls, no trauma, no new activity. 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 Had surgery on her right shoulder because of this. Has done extensive PT in the past and has been doing her frozen shoulder exercises at home. Physical Exam Vitals & Measurements T:37C HR:82(Monitored) RR:16 BP:132/76 SpO2:97% HT:173.3cm WT:83.200kg(Dosing) WT:83.2kg BMI:27.7 PHQ2 Data(Data Documented on:04/11/2024 09:09) Emotional health assessment NEGATIVE Gen: well appearing patient in NAD HEENT: AT NC CV: clinically well perfused Resp: no increased work of breathing Abd: non-distended MSK: no obvious deformities, no palpable spasm, point tenderness over supraspinatus and over the anterior joint line, positive apprehensivetest - labral instability, positive hawkin's,positive drop can, good range of motion and strength, pain less with passive ROM Skin: no bruising or rashes noted Psych: appropriate mood and affect Neuro: alert and oriented Problem List/Past Medical History Ongoing Adhesive capsulitis [...] of upperabdomen| Service Date: 01/28/2023Mammogram| Service Date: 10/19/2022hest x-ray| Service Date: 07/09/2022iabetic retinal eye exam| Service Date: 02/17/2022arium swallow| Service Date: 01/27/2022Mammogram| Service Date: 10/16/2021hest [...] per episode in last year:1 Employment/School Status:Employed Description:[employer] Exercise - Occasional exercise Times per week:3-4 [...] Vaccine Date Status SARS-CoV-2 (COVID-19) mRNA-vacc - [id number] 02/03/2024 Recorded influenza virus vaccine, inactivated 01/31/2024 [...] the next year) Due Adult COVID-19 Vaccination due04/11/24Unknown Frequency Adult Social Determinants of Health Screening due04/11/24Unknown Frequency Hepatitis C Screening due04/11/24One-time only Shingles Vaccine due04/11/24One-time only Due In Future Diabetic Eye Exam not due until09/20/24and every 366day Adult Influenza Vaccine not due until11/06/24and every 1year Diabetes Management A1c not due until11/17/24and every 366day Satisfied(in the past 1 year) Satisfied Adult Influenza Vaccine on01/31/24.Satisfied by KENYON Forbes Paul Body Mass Index on04/11/24.Satisfied by KENYON Arevalo Kathryn Breast Cancer Screening on10/22/23.Satisfied by KENYON Diez Andrew E Diabetes Management A1c on11/17/23.Satisfied by Contributor_system, [email or web address] Diabetes Nephropathy Management on11/17/23.Satisfied by Contributor_system, [email or web address] Diabetic Eye Exam on09/20/23.Satisfied by МАРИНА Burch Lynnae Lipid Screening on04/11/24.Satisfied by Contributor_system, [email or web address] Electronic Signature on File Electronically Reviewed/Signed by: Kimberley Amaro MD Author Signature Dt/Tm:04/11/2024 01:06 PM Resident Department of Family Medicine Electronically Reviewed/Signed by: Carson Jordan MD Cosigner Signature Dt/Tm: 04/12/2024 04:49PM Department of Family Medicine MP Patient Care team information Care Team Personnel Name: MD Servando, Letty Helm Position: Physician - Gastro Member Role: Lifetime Relationship Address: [address] [place] [id number] [place] Name: RANDALL Negron, Deepika Position: System Auditor Member Role: System Auditor Name: MD Mickey, Isis Silva Position: Physician - Internal Med Member Role: Lifetime Relationship Address: [address] [place] [phone] [place] Name: ELVIA Humphrey Jessica A Position: Physician Asst Exmpt - Family Med Member Role: Primary Care Provider Address: [address] [place] [id number] [place] Care Team Related Persons Name: ELAINE SALGADO Name: ELAINE SALGADO"
--- OUTSIDE RECORDS SUMMARY | 2024-07-16 10:18 | External Medical Summary | Continuity of Care Document ---
Author Name Unknown Organization [facility] [address] [facility] Address [address], [place] [id number] Care Team Providers Care Actuarial Analyst Name Role Phone Davidtc Irena Andrey Primary Care Physician [phone] Encounter [facility] [id number] Date(s): 04/17/24 - 04/17/24 [facility] [address], [address] [place] [address] [phone] Encounter Diagnosis Body mass index [BMI] 26.0-26.9, [...] Status Refusal Reason SARS-CoV-2 (COVID-19) mRNA-vacc - [id number] 02/03/24 Recorded influenza virus vaccine, inactivated 01/31/24 [...] 3, PRN: as needed for wheezing, Pharmacy: [facility] (90 Day Supply) Start Date: 05/25/23 Stop Date: 05/19/24 Status: Ordered Augmentin 875 mg-125 mg oral tablet Start: 04/19/24 3:00:00 PM EST, amoxicillin 1 tab, PO, q12h, Disp# 10, Pharmacy: [facility]/pharmacy #[id number] Start Date: 04/19/24 Stop Date: 04/24/24 Status: Ordered azelastine 137 mcg/inh (0.1%) nasal spray Start: 09/19/21 10:39:00 AM EDT, See Instructions, Disp# 3 each, Refills: 3, MAY USE 1 TO 2 SPRAYS IN EACH NOSTRIL EVERY 12 HOURS FOR SINUS CONGESTION, MAY USE WITH FLUTICASONE IF NEEDED FOR ALLERGY SYMPTOMS, Pharmacy: [facility] (90 Day Supply) Start Date: 09/19/21 Status: Ordered BACLOFEN 10 MG TABLET Start: 11/17/23 10:16:00 AM EDT, BACLOFEN 10 MG TABLET, 0.5 tab, PO, tid, Disp# 15 tab, Refills: 1, Pharmacy [facility] STORE [id number] Start Date: 11/17/23 Stop Date: 11/27/23 Status: Ordered Baqsimi 3 mg nasal powder Start: 03/14/19 10:07:00 AM EST, 1 inh, intranasal, ONCE, Disp# 2 packet, Refills: 3, PRN: as neededfor severe hypoglycemia, Pharmacy: [facility]/pharmacy #[id number], Supply Start Date: 03/14/19 Status: Ordered BD needle Ultra-Fine Pen Zora 32G x 4mm Start: 06/19/16 2:00:00 PM EST, See Instructions, Disp# 1 box, Refills: 3, to use with Victoza pen daily, Pharmacy: [facility]/pharmacy #[id number] Start Date: 06/19/16 Status: Ordered diclofenac sodium 75 mg oral delayed release tablet Start: 08/30/23 8:16:00 AM EDT, 1 tab, PO, bid, Disp# 180 tab, Refills: 3, PRN: as needed for pain, Pharmacy: [facility] (90 Day Supply) Start Date: 08/30/23 Stop Date: 08/24/24 Status: Ordered escitalopram 20 mg oral tablet Start: 12/27/23 7:15:00 AM EDT, 1 tab, PO, Daily, Disp# 90 tab, Refills: 3, Pharmacy: [facility] Start Date: 12/27/23 Status: Ordered Flexeril 5 mg oral tablet Start: 03/28/24 8:03:00 AM EST, 1 tab, PO, tid, Disp# 21 tab, Refills: 1, PRN: as needed for spasm,Pharmacy: [facility]/pharmacy #[id number] Start Date: 03/28/24 Stop Date: 04/11/24 Status: Ordered FreeStyle Lite Glucose Monitor Start: 10/31/19 9:06:00 AM EDT, See Instructions, Disp# 1 kit, Refills: 1, use to check glucose 4 x daily, Pharmacy: [facility] (90 Day Supply) Start Date: 10/31/19 Status: Ordered FreeStyle Lite Test Strips 100 ct Start: 05/25/23 8:14:00 AM EST, See Instructions, Disp# 300 each, Refills: 3, check BG 4 x daily, Pharmacy: [facility] (90 Day Supply) Start Date: 05/25/23 Status: Ordered furosemide 20 mg oral tablet Start: 08/30/23 8:16:00 AM EDT, 1 tab, PO, Daily, Disp# 90 tab, Refills: 3, Note to Pharmacy: discontinue hCTZ, Pharmacy: [facility] (90 Day Supply) Start Date: 08/30/23 Status: Ordered gabapentin 300 mg oral capsule Start: 12/27/23 11:50:00 AM EDT, 1 cap, PO, qhs, Disp# 90 unknown unit, Refills: 3, Pharmacy: [facility] Start Date: 12/27/23 Status: Ordered HumaLOG Vial 100 units/mL injectable solution Start: 01/26/24 2:59:00 PM EDT, See Instructions, Disp# 10 mL, Refills: 0, up to 70U SQ daily via insulin pump, Pharmacy: [facility]/pharmacy #[id number] Start Date: 01/26/24 Status: Ordered ipratropium 42 mcg/inh (0.06%) nasal spray Start: 10/29/23 3:25:00 PM EDT, 2 spray, each nostril, tid, Disp# 1 each, Refills: 2, PRN: as neededfor cold symptoms, Pharmacy: [facility]/pharmacy #[id number] Start Date: 10/29/23 Status: Ordered liraglutide (Victoza) 18 mg/3 mL subcutaneous solution Start: 11/23/23 8:22:00 AM EDT, See Instructions, subQ, Daily, Disp# 6 mL, Refills: 3, Inject 0.6 mgsubQ daily for one week then increase to 1.2 mg daily. Inject under the skin in the upper arm, thigh, or abdomen. Rotate injection sites., Pharmacy: [facility] (90 Day Supply) Start Date: 11/23/23 Status: Ordered losartan 100 mg oral tablet Start: 03/30/24 9:32:00 AM EST, 1 tab, PO, Daily, Disp# 90 tab, Refills: 3, Pharmacy: [facility] (90 Day Supply) Start Date: 03/30/24 Status: Ordered NovoLOG 100 units/mL injectable solution Start: 05/25/23 8:14:00 AM EST, See Instructions, Disp# 70 mL, Refills: 3, USING UP TO 70 UNITS SUBCUTANEOUSLY DAILY VIA INSULIN PUMP, Pharmacy: [facility] (90 Day Supply) Start Date: 05/25/23 Status: Ordered pravastatin 10 mg oral tablet Start: 08/30/23 8:15:00 AM EDT, See Instructions, Disp# 90 tab, Refills: 3, TAKE ONE TABLET BY MOUTHDAILY AT BEDTIME, Pharmacy: [facility] (90 Day Supply) Start Date: 08/30/23 Status: Ordered Prempro 0.45 mg-1.5 mg oral tablet Start: 06/08/22 8:56:00 AM EST, 1 tab, PO, Daily Start Date: 06/08/22 Status: Ordered rOPINIRole 0.25 mg oral tablet Start: 08/30/23 8:17:00 AM EDT, 1 tab, PO, Daily, Disp# 90 tab, Refills: 3, Pharmacy: [facility] (90 Day Supply) Start Date: 08/30/23 Stop Date: 08/24/24 Status: Ordered spacer for use w inhaler Start: 04/29/18 12:11:00 PM EST, spacer for use w inhaler, eRx Product Type: Supply, See Instructions, Disp# 1 unit, Spacer to use with inhaler, Pharmacy [facility]/pharmacy #[id number] Start Date: 04/29/18 Status: Ordered Toprol-XL 25 mg oral tablet, extended release Start: 11/12/23 11:39:00 AM EDT, See Instructions, Disp# 90 tab, Refills: 0, 1 tab PO Daily PRN priorto exercise, Pharmacy: [facility]/pharmacy #[id number] Start Date: 11/12/23 Status: Ordered traZODone 150 mg oral tablet Start: 08/30/23 8:15:00 AM EDT, 0.5 tab, PO, qhs, Disp# 45 tab, Refills: 3, [facility] Start Date: 08/30/23 Status: Ordered unlisted medication Start: 07/19/15 8:39:00 AM EST, ketone strips, eRx Product Type: Supply, See Instructions, Disp# 1 box, Refills: 3, use as directed for hyperglycemia, Pharmacy [facility] (90 Day Supply) Start Date: 07/19/15 Status: Ordered valACYclovir 500 mg oral tablet Start: 07/05/19 8:07:00 AM EST, 1 tab, PO, Daily, Disp# 90 tab, Refills: 3, Pharmacy: [facility] (90 Day Supply) Start Date: 07/05/19 Status: Ordered Mental Status 04/17/24 Barriers to Learning one year None evide nt Mandatory Health Literacy Documentation Yes Health Literacy Communication Barriers R martinez Primary Language Lithuanian Problem List Condition Confirmation Course Effective Dates [...] PCP 4Left Middle Trigger Digit Release 5[facility] Impression: 1 Normal contractile response of the gallbladder to Kinevac infusion 2.Normal biliary imaging study 6[facility] Impression: 1. No significant abnormality identified within the right upper quadrant 7[facility] Impression: ACR BI-RADS CATEGORY 2: BENIGN 1. No evidence of malignancy 8[facility] Impression: 1. No acute abnormalities and in particular no radiographic evidence of pneumonia 9[facility] Impression: 1. Posterior vitreous detachment OD. 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 Treated proliferative diabetic retinopathy OD. Good PRP 4. Treated proliferative diabetic retinopathy OS. Good PRP 5. Chronic vitreous hemorrhage OD 6. Nuclear sclerosis OU 10[facility] Impression: 1. Unremarkable esophagram 11[facility] Impression: ACR BI-RADS CATEGORY 1: NEGATIVE 1. No evidence of malignancy 12No acute abnormalities and in particular no evidence of pneumonia 13Left Carpal Tunnel Syndrome 14Left 15[facility]: ACR BI-RADS CATEGORY 2: BENIGN 1. No evidence of malignancy 17[facility] Impression: 1. Diabetes, Type 1 [...] stomach Normal examined duodenum Await pathology results. 19[facility] Impression: 1. DM Type 1 with ocular complications 2. Proliferative diabetic retinopathy OD 3. Treated proliferative diabetic retinopathy OS. Quiescent post PRP 4. Nuclear sclerosis OU 20[facility] Impression: 1. Trace layering gallbladder sludge. [...] bruits to auscultation bilaterally. Integumentary: Warm, Dry, Chance Neurologic: Alert, Oriented. Cognition and Speech: Speech [...] per episode in last year:1 Employment/School Status:Employed Description:[employer] Exercise - Occasional exercise Times per week:3-4 [...] Electronic Signature on File CC: Irena Humphrey PA-C,[facility] [address] [facility] [address] [place] [id number] Electronically Reviewed/Signed by: LOU Christensen Author Signature Dt/Tm:04/17/2024 03:58 PM [facility] Patient Care team information Care Team Personnel Name: MD Servando, Letty Helm Position: Physician - Gastro Member Role: Lifetime Relationship Address: [address] [place] [id number] [place] Name: RANDALL Negron Melissa Position: Customer Experience Strategist Member Role: Customer Experience Strategist Name: MD Mickey, Isis Silva Position: Physician - Internal Med Member Role: Lifetime Relationship Address: [address] [place] [phone] [place] Name: ELVIA Humphrey, Irena Balderas Position: Physician Asst Nunez - Family Med Member Role: Primary Care Provider Address: [address] [place] [address] [address] [place] [address] [place] Care Team Related Persons Name: ELAINE SALGADO Name: ELAINE SALGADO"
[2024-07-16] MEDS: ACETAMINOPHEN 1,000 MG/100 ML VIAL IV STA (10:48)
[2024-07-16] MEDS: ONDANSETRON INJ 2 MG/ML 2 ML VIAL IV STA ×2 (10:48→14:48)
[2024-07-16] MEDS: OPTIRAY 320 100ml IV ONE (10:51)
[2024-07-16] MEDS: SODIUM CHLORIDE 0.9% 500 ML IV ONE (10:52)
--- NOTE | 2024-07-16 11:00 | XRay Report ---
XR chest 1V portable CLINICAL HISTORY: Trauma COMPARISON STUDY: 07/09/2022 FINDINGS: Stable mild cardiomegaly without pulmonary vascular congestion. No effusion, consolidation, or pneumothorax. There are a few minimally displaced fractures lower lateral left ribs. IMPRESSION: Left rib fractures with no pneumothorax seen. ACT 112: Negative or not required by law. Electronically signed by: Sidney Pickering M.D. 07/16/2024 10:59 AM
[2024-07-16 11:02] LABS: iSTAT Creatinine 0.8 mg/dl (0.6-1.3); iSTAT Hemoglobin 13.9 g/dl (12.0-16.0); iSTAT Ionized Calcium 1.11 mmol/l (1.12-1.32); iSTAT Potassium 4.1 mmol/L (3.3-5.0)
[2024-07-16 11:09] LABS: Basophils # (auto) 0.02 K/uL (0.00-0.20); Basophils % (auto) 0.1 %; Hematocrit (blood only) 39.3 % (37.0-47.0); Hemoglobin 13.3 g/dl (12.0-16.0); Immature Granulocytes # (auto) 0.04 K/uL (0.01-0.20); Immature Granulocytes % (auto) 0.3 %; Lymphocytes # (auto) 1.09 K/uL (1.20-3.40); Lymphocytes % (auto) 7.7 %; Mean Corpuscular Hgb Conc 33.8 g/dL (32.0-36.0); Mean Corpuscular Volume 91.6 fL (80.0-100.0); Mean Platelet Volume 8.5 fL (9.4-12.4); Monocytes # (auto) 0.65 K/uL (0.11-0.59); Monocytes % (auto) 4.6 %; Neutrophils # (auto) 12.43 K/uL (1.40-6.50); Neutrophils % (auto) 87.3 %; Platelet Count 329 K/uL (130-400); RDW Coefficient of Variation 12.2 % (11.5-14.5); RDW Standard Deviation 40.5 fL (36.4-46.3); Red Blood Count 4.29 M/uL (4.20-5.40); White Blood Count 14.23 K/ul (4.8-10.8)
[2024-07-16 11:10] LABS: Albumin Globulin Ratio 1.4 (0.9-2); Albumin Level 4.4 gm/dl (3.4-5.0); BUN Creatinine Ratio 20.3 (10-20); Bilirubin,Total 0.5 mg/dl (0.2-1.0); Calcium 8.9 mg/dl (8.6-10.3); Creatinine Clr Calc Pharmacy 119.6 ml/min; Globulin 3.1 gm/dl (2.5-4.0); Potassium 4.2 mmol/L (3.5-5.1); Total Protein 7.5 gm/dl (6.0-8.3)
[2024-07-16 11:16] LABS: Troponin I High Sensitivity 3.8 pg/ml (0-14)
--- NOTE | 2024-07-16 11:16 | CT Scan Report ---
CT head/brain wo con CLINICAL HISTORY: Trauma. TECHNIQUE: Multiple axial CT images of the head were obtained without contrast. A dose lowering tech nique was utilized adhering to the principles of ALARA. COMPARISON: None FINDINGS: There is a mild right periorbital soft tissue hematoma with no intraorbital hematoma seen. No intracranial hemorrhage seen. No mass effect, midline shift, or hydrocephalus. No skull fracture s een. Visualized paranasal sinuses and mastoid air cells are clear. IMPRESSION: 1. No acute intracranial findings. 2. Mild right periorbital soft tissue hematoma. ACT 112: Negative or not required by law. The above report was generated using voice recognition software. It may contain grammatical, syntax o r spelling errors. Electronically signed by: Sidney Pickering M.D. 07/16/2024 11:15 AM
--- NOTE | 2024-07-16 11:21 | CT Scan Report ---
CT cervical spine wo con CT DOSE: 3739.25 mGy.cm CLINICAL HISTORY: Trauma. COMPARISON: None TECHNIQUE: Multiple axial CT images of the cervical spine were obtained without contrast. A dose low ering technique was utilized adhering to the principles of ALARA. FINDINGS: There is moderate lower cervical degenerative disc disease. No fracture or subluxation. IMPRESSION: No cervical spine fracture seen. ACT 112: Negative or not required by law. The above report was generated using voice recognition software. It may contain grammatical, syntax o r spelling errors. Electronically signed by: Sidney Pickering M.D. 07/16/2024 11:19 AM
--- NOTE | 2024-07-16 11:29 | CT Scan Report ---
CHEST, ABDOMEN, AND PELVIS CT WITH CONTRAST HISTORY: Trauma TECHNIQUE: Multiaxial CT images of the chest , abdomen, and pelvis were performed following the IV ad ministration of 90 cc of Optiray. A dose lowering technique was utilized adhering to the principles of ALARA. COMPARISON STUDY: 05/05/2023 FINDINGS: CHEST: There is no pulmonary contusion, pleural effusion, or pneumothorax. No mediastinal hematoma or evidence of thoracic aortic injury. No pericardial effusion. ABDOMEN: Liver, gallbladder, spleen, pancreas, kidneys, and adrenal glands show no evidence of acute injury. Stable small cysts at the right kidney. No hydronephrosis bilaterally. No evidence of abdomin al aortic injury or aneurysm. There are mild atherosclerotic calcifications. Pelvis: Uterus and adnexa are grossly unremarkable. Urinary bladder is decompressed. No bowel inflamm ation or obstruction. No free fluid or free air. Osseous structures: No acute fracture seen at the visualized osseous structures. IMPRESSION: No acute injury seen at the chest, abdomen, or pelvis. ACT 112: Negative or not required by law. Electronically signed by: Sidney Pickering M.D. 07/16/2024 11:26 AM
--- NOTE | 2024-07-16 11:29 | XRay Report ---
XR knee LT 1 or 2V routine, XR knee RT 1 or 2V routine CLINICAL HISTORY: fall COMPARISON: None FINDINGS: No fracture or dislocation seen at either knee. No significant degenerative change. IMPRESSION: No fracture seen at either knee. ACT 112: Negative or not required by law. Electronically signed by: Sidney Pickering M.D. 07/16/2024 11:28 AM
--- NOTE | 2024-07-16 11:35 | CT Scan Report ---
CT facial bones wo con CLINICAL HISTORY: Trauma. COMPARISON STUDY: None TECHNIQUE: High-resolution CT scan of the facial bones is performed. Images are reviewed in the axia l, sagittal, and coronal planes. IV contrast was not administered for this examination. A dose lower ing technique was utilized adhering to the principles of ALARA. FINDINGS: There is minimal irregularity at the right nasal bone compared to the left consistent with nondisplaced fracture of uncertain chronicity. There is right periorbital soft tissue swelling. No in traorbital hematoma seen. No fracture seen at the orbits, zygoma, maxilla, pterygoid plates, and alayna ible. There is mild mucosal thickening in the maxillary sinuses. No sinus fluid or hemorrhage seen. T here is mild S-shaped morphology of the nasal septum. IMPRESSION: 1. Nondisplaced right nasal bone fracture, possibly chronic. 2. Otherwise no orbital or facial fracture seen. ACT 112: Negative or not required by law. The above report was generated using voice recognition software. It may contain grammatical, syntax o r spelling errors. Electronically signed by: Sidney Pickering M.D. 07/16/2024 11:33 AM
[2024-07-16] MEDS: SODIUM CHLORIDE 0.9% 1,000 ML IV SCH (11:54)
[2024-07-16] MEDS ORDERED: ACETAMINOPHEN 500 MG TAB PO PRN (12:44)
[2024-07-16] MEDS ORDERED: NALOXONE HCL 0.4 MG/1 ML VIAL/CARP IV PRN (12:44)
[2024-07-16] MEDS ORDERED: PHARMACY GLYCEMIC MGMT CONSULT PRN (12:44)
--- NOTE | 2024-07-16 12:51 | History & Physical Report ---
Date of Service July 16, 2024 Assessment & Plan (1) Rib fractures: Plan: 54yo female presented after fall 2nd to alcohol use last evening (sixtodarielsuzanna), etoh 160s on admission w/ CK 1900 and trauma alert Admit w/ telemetry given trauma alert and alcohol use w/ rib fractures -Imaging noting LEFT 7th and 8th rib fractures, no PTX or pneumonia Pulmonary toilet, incentive spirometer, lidocaine patch, pain control and supplemental O2 as needed IVF for mild rhabdo as below and PT/OT consults placed Monitor labs/exam in AM (2) Rhabdomyolysis: Plan: CK 1902 on admission with normal LFTs and renal function. suspect 2nd to fall/being down following alcohol No statin or ARB for now, IVF have been ordered and will monitor CK in AM. PT/OT evals (3) Fall: Plan: 2nd to alcohol use suspected but UA pending. IVF hydration for elevated CK and will plan for PT/OT consults. CT head negative for acute CVA. Does report palpitations at times and ?2nd to alcohol use vs anxiety w/ of her parents. TSH w/ AM labs UA ordered when able to collect (4) Alcohol use: Plan: Not every day user but does binge drink when she does -- worsened recently with passing of her parents and BHU liason consult placed as discussed. remains on SSRI Etoh level 160 on admission but last drink ~12hrs prior to coming in Electrolyte replacement as needed and will order thiamine/b12/folate Tele monitoring/monitor for DTs (no prior hx of such) (5) Type 1 diabetes: Plan: Pharmacy consulted for glycemic assistance while inpatient (6) HTN (hypertension): Plan: continue meds w/ exceptions as noted above (7) Asthma: Plan: lung exam stable and albuterol HFA available as needed pulm toilet for rib fractures and pain control as outlined monitor for nebs if needed Plan DVT proph: SCD ordered but will hold off chemoproph given fracture/hematoma and bruising but can start in AM if continued inpatient stay Dispo: admit to monitored bed, pain control and monitoring rib fractures and checking UA. IVF for mild rhabdo and statin/ARB on hold. Lasix resumed for AM but can be held if any issues. PT/OT consults placed and BHU liason Hopeful dc 07/17 with ongoing pain control and outpatient counseling for binge drinking History of Present Illness Chief Complaint: fall, alcohol use, rib fracture, rhabdo Primary Care Provider: Irena Humphrey PA-C 54yo female with history of alcohol use fell last night after drinking but unsure where/when/how she fell. Presented with bilateral eye/nose/jaw bruising. As clearing up, more of the store w/ drinking at the bar but had a fall while there and carried out by /other people and fell again getting out of the car into the house and was left by and ended up crawling back into the house w/ subsequent abrasions ot knee/elbows. Trauma alert in ER. Majority of imaging negative with exception sustained facial contusion but did note LEFT lateral EIGHTH and NINTH rib fractures. No PTX noted. Further discussion w/ ER provider and sacral pain does appear step off in that region and message to radiology for review. Mild rhabdo w/ CK 1900s on admission likely from being down from fall/alcohol use. Stopped drinking ~12 hrs ago and etoh ~160s on admission and suspect was in the 400s when initial fall. Eval in ER C1B, at bedside. Had occasional binge drinking in the past but patient does have increased stress/anxiety with her father passing a couple weeks ago and her mother 7 months prior to that. reports he missed the signs before they went out but that she had zaria doing well for a while. No hx DTs or withdrawal and doesn't drink everyday. Does have some left sided rib pain, abrasions to her knees present and wound RN to be consulted. Does take ozempic for weight loss/DM and last dose last week and due today. Occasional diarrhea/constipation at times but no acute changes. Does take lasix as needed but no significant edema and getting IVF at present but will monitor. Mild headache but reports feels like she has whiplash. C-collar in place but to alert if any worsening following removal and herman plan for MRI but CT cervical spine without acute fracture. does have BB to take w/ exercising, occasional palpitations. Will check TSH w/ next lab draw. No urinary symptoms reported or edema on exam. Discussed admission for IVF hydration, pain control/tx of ribs. C-colar in pace and monitor for any pain following to require MRI. Patient hopeful w/ pain control/fluids and therapy evals possible discharge in AM 3/10 . No smoking hx. Alcohol as above, binge drinking when occurs. Full code. No hx DVT/PE. Occupation: nurse at [employer] Allergies Allergy/AdvReac Type Severity Reaction Status Date / Time hydrocodone [From [place]] AdvReac Nausea Verified 07/16/24 13:44 Home Medications Medication Instructions Recorded Confirmed Type pravastatin 10 mg tablet 10 mg PO QPM 04/25/19 07/16/24 History insulin aspart U-100 100 unit/mL See Rx Instructions continuous 05/25/19 07/16/24 History subcutaneous solution (Novolog subcutaneous infusion DAILY U-100 Insulin aspart) blood-glucose sensor (Radiance G6 #3 ea 06/12/19 03/02/23 History Sensor device) ropinirole 0.25 mg tablet 0.25 mg PO HS PRN Discomfort 11/25/21 07/16/24 History albuterol sulfate 90 mcg/actuation 1 inh inhalation QID PRN Wheezing 03/29/23 07/16/24 History aerosol inhaler escitalopram oxalate 20 mg tablet 20 mg PO HS 03/29/23 07/16/24 History furosemide 20 mg tablet 20 mg PO QAM 03/29/23 07/16/24 History conj estrogen-medroxyprogesterone 1 tab PO DAILY 07/16/24 07/16/24 History 0.45 mg-1.5 mg tablet (Prempro) gabapentin 300 mg capsule 300 mg PO QPM 07/16/24 07/16/24 History losartan 100 mg tablet 100 mg PO PM 07/16/24 07/16/24 History metoprolol succinate 25 mg 25 mg PO DAILY PRN Prior to 07/16/24 07/16/24 History tablet,extended release 24 hr Exercise semaglutide 0.25 mg or 0.5 mg (2 0.25 mg subcut WK 07/16/24 07/16/24 History mg/3 mL) subcutaneous pen injector (Ozempic) trazodone 150 mg tablet 75 mg PO HS 07/16/24 07/16/24 History valacyclovir 500 mg tablet 500 mg PO QAM 07/16/24 07/16/24 History Past Med/Surg History Problem List (Updated 07/16/24 @ 13:52 by Chance Stokes MD) Multiple abrasions (Acute) Left rib fracture (Acute) Contusion of face (Acute) CHI (closed head injury) (Acute) Multiple falls (Acute) Rhabdomyolysis (Acute) Alcohol intoxication (Acute) Alcohol use Rib fractures Rhabdomyolysis Fall Trigger finger Encounter for pre-operative examination COVID- (Acute) Menopausal symptoms Vocal cord dysfunction LPRD (laryngopharyngeal reflux disease) Chronic cough Dyslipidemia Type 1 diabetes Nonproductive cough Former smoker HTN (hypertension) IBS (irritable bowel syndrome) Asthma Diabetes Medical History RUQ pain scheduled for Apr 19 endo at [facility] Short of breath on exertion Palpitations on occasion Diastolic dysfunction per recent ECHO at [facility] COVID-26 July 2021 PONV (postoperative nausea and vomiting) Osteoarthritis IBS (irritable bowel syndrome) GERD (gastroesophageal reflux disease) Insulin pump in place DM type 1 (diabetes mellitus, type 1) TMJ (temporomandibular joint disorder) wears park guard > has not locked, just painful Anxiety HTN (hypertension) HLD (hyperlipidemia) Asthma rare use of PRN inh Surgical History History of carpal tunnel release bilat History of shoulder surgery Rt S/P trigger finger release right middle and thumb History of non-cataract eye surgery for retina issue > bilat History of surgery scar tissure removed buttocks History of colonoscopy Family History Aunt Cancer Cervical cancer Father Hearing loss Heart disease Hypertension Asthma Myocardial infarction Prostate cancer Other Diabetes Dyslipidemia No family history of adverse response to anesthesia Denies family history of Ovarian cancer Breast cancer Colorectal cancer Social History Smoking Status: Former smoker Age Quit Using Tobacco: 43; Second Hand Exposure: No; Do You Dip or Chew Tobacco: No; Hx Alcohol Use: Yes Alcohol type: beer and wine Hx Substance Use: No Preferred Language: Greek Communication Ability: Effective Hearing Ability: Normal Sorting Livestock Worker Required: No Beliefs That Will Affect Care: None Current Living Situation: Spouse current occupation: Registered Nurse Feels Safe at Home: Yes Assistive Devices: Glasses Review of Systems 2 Review of Systems: All systems reviewed & are unremarkable except as noted in HPI & below Physical Exam 2 Physical Exam: General 54yo female sitting up in bed, in room, c-collar in place, multiple facial contusions HEENT: cervical collar in place, pupils equal/reactive, mm dry, multiple facial contusions/preseptal hematoma Resp: slightly diminished in the bases with +tenderness on the LEFT in region of rib fractures, no wheezing/rales, on room air CV: RRR, occasional extra beat, rates controlled, no pitting edema or calf tenderness GI: +BS, soft, slight distension : no alcazar MSK/Neuro abrasions to b/l knees/elbows, no cellulitis but will apply topical bacitracin, +tenderness, pulses present not confused, no facial droop, answering questions appropriately Psych: AOx3, cooperative, tearful when talking about passing of her parents, support provided Results & Data Results & Data Vital Signs (Past 12 Hours) Vital Signs Temp Pulse Pulse Resp BP BP Pulse Ox 07/16/24 11:53 94 07/16/24 11:10 36.8 C 102 H 20 136/97 95 07/16/24 11:10 95 07/16/24 11:10 106 H 24 136/97 95 07/16/24 10:41 107 H 07/16/24 10:23 36.5 C 111 H 18 145/87 H 98 O2 Del Method O2 Flow Rate 07/16/24 11:53 Room Air 07/16/24 11:10 Room Air 0 07/16/24 11:10 Room Air 07/16/24 11:10 Room Air 07/16/24 10:41 07/16/24 10:23 Room Air Laboratory Results 07/16/24 10:41 07/16/24 10:41 mag 1.8 CK 1902 Lipase 6 Diagnostic Findings Chest X-Ray 07/16/24 10:31 XR chest 1V portable CLINICAL HISTORY: Trauma COMPARISON STUDY: 07/09/2022 FINDINGS: Stable mild cardiomegaly without pulmonary vascular congestion. No effusion, consolidation, or pneumothorax. There are a few minimally displaced fractures lower lateral left ribs. IMPRESSION: Left rib fractures with no pneumothorax seen. ACT 112: Negative or not required by law. Electronically signed by: Sidney Pickering M.D. 07/16/2024 10:59 AM Abdomen/Pelvis CT 07/16/24 10:41 CHEST, ABDOMEN, AND PELVIS CT WITH CONTRAST HISTORY: Trauma TECHNIQUE: Multiaxial CT images of the chest , abdomen, and pelvis were performed following the IV administration of 90 cc of Optiray. A dose lowering technique was utilized adhering to the principles of ALARA. COMPARISON STUDY: 05/05/2023 FINDINGS: CHEST: There is no pulmonary contusion, pleural effusion, or pneumothorax. No mediastinal hematoma or evidence of thoracic aortic injury. No pericardial effusion. ABDOMEN: Liver, gallbladder, spleen, pancreas, kidneys, and adrenal glands show no evidence of acute injury. Stable small cysts at the right kidney. No hydronephrosis bilaterally. No evidence of abdominal aortic injury or aneurysm. There are mild atherosclerotic calcifications. Pelvis: Uterus and adnexa are grossly unremarkable. Urinary bladder is decompressed. No bowel inflammation or obstruction. No free fluid or free air. Osseous structures: No acute fracture seen at the visualized osseous structures. IMPRESSION: No acute injury seen at the chest, abdomen, or pelvis. ACT 112: Negative or not required by law. Electronically signed by: Sidney Pickering M.D. 07/16/2024 11:[address] 07/16/24 10:41 CHEST, ABDOMEN, AND PELVIS CT WITH CONTRAST HISTORY: Trauma TECHNIQUE: Multiaxial CT images of the chest , abdomen, and pelvis were performed following the IV administration of 90 cc of Optiray. A dose lowering technique was utilized adhering to the principles of ALARA. COMPARISON STUDY: 05/05/2023 FINDINGS: CHEST: There is no pulmonary contusion, pleural effusion, or pneumothorax. No mediastinal hematoma or evidence of thoracic aortic injury. No pericardial effusion. ABDOMEN: Liver, gallbladder, spleen, pancreas, kidneys, and adrenal glands show no evidence of acute injury. Stable small cysts at the right kidney. No hydronephrosis bilaterally. No evidence of abdominal aortic injury or aneurysm. There are mild atherosclerotic calcifications. Pelvis: Uterus and adnexa are grossly unremarkable. Urinary bladder is decompressed. No bowel inflammation or obstruction. No free fluid or free air. Osseous structures: No acute fracture seen at the visualized osseous structures. IMPRESSION: No acute injury seen at the chest, abdomen, or pelvis. ACT 112: Negative or not required by law. Electronically signed by: Sidney Pickering M.D. 07/16/2024 11:[address] 07/16/24 10:42 CT cervical spine wo con CT DOSE: 3739.25 mGy.cm CLINICAL HISTORY: Trauma. COMPARISON: None TECHNIQUE: Multiple axial CT images of the cervical spine were obtained without contrast. A dose lowering technique was utilized adhering to the principles of ALARA. FINDINGS: There is moderate lower cervical degenerative disc disease. No fracture or subluxation. IMPRESSION: No cervical spine fracture seen. ACT 112: Negative or not required by law. The above report was generated using voice recognition software. It may contain grammatical, syntax or spelling errors. Electronically signed by: Sidney Pickering M.D. 07/16/2024 11:[address] 07/16/24 10:42 CT facial bones wo con CLINICAL HISTORY: Trauma. COMPARISON STUDY: None TECHNIQUE: High-resolution CT scan of the facial bones is performed. Images are reviewed in the axial, sagittal, and coronal planes. IV contrast was not administered for this examination. A dose lowering technique was utilized adhering to the principles of ALARA. FINDINGS: There is minimal irregularity at the right nasal bone compared to the left consistent with nondisplaced fracture of uncertain chronicity. There is right periorbital soft tissue swelling. No intraorbital hematoma seen. No fracture seen at the orbits, zygoma, maxilla, pterygoid plates, and mandible. There is mild mucosal thickening in the maxillary sinuses. No sinus fluid or hemorrhage seen. There is mild S-shaped morphology of the nasal septum. IMPRESSION: 1. Nondisplaced right nasal bone fracture, possibly chronic. 2. Otherwise no orbital or facial fracture seen. ACT 112: Negative or not required by law. The above report was generated using voice recognition software. It may contain grammatical, syntax or spelling errors. Electronically signed by: Sidney Pickering M.D. 07/16/2024 11:[address] 07/16/24 10:42 CT head/brain wo con CLINICAL HISTORY: Trauma. TECHNIQUE: Multiple axial CT images of the head were obtained without contrast. A dose lowering technique was utilized adhering to the principles of ALARA. COMPARISON: None FINDINGS: There is a mild right periorbital soft tissue hematoma with no intraorbital hematoma seen. No intracranial hemorrhage seen. No mass effect, midline shift, or hydrocephalus. No skull fracture seen. Visualized paranasal sinuses and mastoid air cells are clear. IMPRESSION: 1. No acute intracranial findings. 2. Mild right periorbital soft tissue hematoma. ACT 112: Negative or not required by law. The above report was generated using voice recognition software. It may contain grammatical, syntax or spelling errors. Electronically signed by: Sidney Pickering M.D. 07/16/2024 11:15 AM Knee X-Ray 07/16/24 10:42 XR knee LT 1 or 2V routine, XR knee RT 1 or 2V routine CLINICAL HISTORY: fall COMPARISON: None FINDINGS: No fracture or dislocation seen at either knee. No significant degenerative change. IMPRESSION: No fracture seen at either knee. ACT 112: Negative or not required by law. Electronically signed by: Sidney Pickering M.D. 07/16/2024 11:28 AM Knee X-Ray 07/16/24 10:42 XR knee LT 1 or 2V routine, XR knee RT 1 or 2V routine CLINICAL HISTORY: fall COMPARISON: None FINDINGS: No fracture or dislocation seen at either knee. No significant degenerative change. IMPRESSION: No fracture seen at either knee. ACT 112: Negative or not required by law. Electronically signed by: Sidney Pickering M.D. 07/16/2024 11:28 AM Supervising Physician Co-Signing Physician Notes The patient was seen by me. The chart was reviewed. Case discussed with MICHAEL Tan. C-spine images are negative for fracture. Hard collar will be removed. Agree with assessment and plan PG Care Time/CCT Total # of Minutes Spent Total Time Spent with Patient: Total time spent is greater than 50% in coordination of care (as documented) at patient's floor/unit and/or counseling patient: Coding Level of Care Code 79049 INT INP/OBS CARE 375MIN Diagnoses Rib fractures S22.49XA Rhabdomyolysis M62.82 Fall W19.XXXA Alcohol use F10.90 Type 1 diabetes E10.9 HTN (hypertension) I10 Asthma J45.909
[2024-07-16 12:56] LABS: Magnesium 1.8 mg/dl (1.7-2.4)
[2024-07-16] MEDS ORDERED: ALBUTEROL HFA 8 GM INHALER INH PRN (13:09)
[2024-07-16] MEDS ORDERED: DICYCLOMINE HCL 10 MG CAP PO PRN (13:09)
[2024-07-16 13:31] LABS: Partial Thromboplastin Time 27 Seconds (21-31); Prothrombin Time 10.6 Seconds (9.0-12.0)
--- NOTE | 2024-07-16 13:52 | Emergency Department Note ---
Impression & Plan Alcohol intoxication, Rhabdomyolysis, Multiple falls, CHI (closed head injury), Contusion of face, Left rib fracture, Multiple abrasions ED Provider Note NAME: RUPERT SALGADO AGE: 54 SEX: Female INFORMANT: Patient, friend and ED PROVIDER(S): Chance Stokes MD CHIEF COMPLAINT: Multiple falls PLAN: Disposition: Admitted Outpatient prescription management: none Referral: None MEDICAL DECISION MAKING: Patient presented because of multiple falls. She was made a trauma alert. She had visible signs of facial injury. Primary and secondary surveys performed. She was hydrated and treated with Zofran and Tylenol. Patient had a normal ECG. Cardiac monitoring was unremarkable. The patient underwent CT imaging of the head, face, neck, chest, abdomen and pelvis. Patient was found to have no evidence of acute intracranial injury. There were nasal bone fractures present. She is tender in this area. Patient also had 2 fractures of the left ribs. No pneumothorax or hemothorax. C-spine was unremarkable. CT scan of the abdomen pelvis was unremarkable however I did note that she had a nondisplaced sacral fracture. The patient is tender in this spot. Blood work revealed a mildly elevated blood alcohol level as well as an elevated total CK concerning for rhabdomyolysis. Patient was hydrated. She was treated with Tylenol and Zofran. Her intoxication was clear and cervical collar was removed in the standard fashion without any tenderness or discomfort. Bacitracin and bandages ordered for her abrasions. Consultation was made with Dr. Paz of the [facility] service. Case discussed and diagnostics were reviewed with the team. Patient was evaluated in the ER for further management. Care/management discussed with: efficiency manager Level of care consideration(s): After review of the information above and other included data, I feel the patient requires escalation of care to admission Triage Nursing notes: reviewed and agree them. Vital Signs: reviewed and remarkable for no significant abnormalities Additional History obtained from: Patient's and friend. Patient has was note that the patient consumed probably 9 shots of Hortensia Beth last night. Chronic Medical/Social Conditions affecting care: Diabetes Prior/ Outside/ External records reviewed: none Differential Diagnosis: Fracture, dislocation, contusion, intra-abdominal, pneumothorax, intrathoracic, intracranial, neurologic, compartment syndrome, rhabdomyolysis, as well as other pathologies. Diagnostics, independently interpreted by me: ECG: Twelve-lead ECG reveals normal sinus rhythm at 100 beats per minute. No evidence of pericarditis, ischemia, ectopy, or dysrhythmia. Cardiac Monitoring: Cardiac monitoring ordered by me: The patient was placed on continuous cardiac monitoring and observed. It revealed a normal sinus rhythm at 88 beats per minute without ectopy or evidence of dysrhythmia. Medical decision rules: none Imaging studies: Chest x-ray reveals presence of left rib fracture without pneumothorax. X-ray imaging of both knees negative for fracture or dislocation. CT scan of the head, neck, chest, abdomen pelvis as well as facial bones as noted above. HPI: 54 year old Female arrives for evaluation of multiple falls. This occurred last night. Patient reportedly was drinking alcohol and fell at the establishment. She then fell 3 times trying to get into her house. Her had difficulty getting her inside and eventually was able to. Patient does not remember exactly what happened. She woke up with pain in her face, tailbone, and left ribs. Patient also notes having pain in both knees mildly but is able to ambulate. She had significant bruising of the right side of her face. Patient also noted some bleeding from her chin. Patient presented to the ER for further evaluation. Patient does note associated nausea. She took no medication to arrival. She did rated her pain as a 4 out of 10. Pt denies visual changes, neck pain, chest pain, breathing difficulties, vomiting, abdominal pain, back pain, other extremity pain, numbness, weakness, or other complaints. PAST MEDICAL HISTORY: See Below, diabetes PAST SURGICAL HISTORY: See Below, SOCIAL HISTORY: See Below, HOME MEDICATIONS: See Below ALLERGIES: See Below VITALS: See Below PHYSICAL EXAMINATION: GENERAL: Awake, alert, uncomfortable appearing, no acute distress HEAD: Normocephalic. No wiley sign. Right periorbital ecchymosis and swelling. No step-offs. Patient has a moderate-sized abrasion under the chin with associated ecchymosis. EYES: Normal conjunctiva. PERRL. EARS: External ears normal. NOSE: Mild swelling and tenderness. No septal hematoma. OROPHARYNX: Lips, tongue, and mucosa unremarkable. No erythema or exudate. NECK: Cervical collar placed. No tracheal deviation or JVD. No posterior midline tenderness. No step offs noted. RESPIRATORY: CTA bilaterally CARDIAC: Regular rate, normal rhythm. ABDOMEN: Inspection reveals no abnormalities. Soft, non distended. No tenderness to palpation. No hernias. BACK: No midline step offs or tenderness to palpation. PELVIS: Stable to rock.There is mild sacral tenderness to palpation. SKIN: Normal. LYMPH: No adenopathy. MUSCULOSKELETAL: No gross bony deformity of the upper and lower extremities. Abrasions and contusions noted over both knees and elbows. Patient has a contusion of the left bicep without associated tenderness. NEURO: GCS 15. Normal sensorium. No sensory or motor deficits noted. PROCEDURES: none CRITICAL CARE: none OBSERVATION NOTE: none Past Med/Surg History Problem List (Updated 07/16/24 @ 13:52 by Chance Stokes MD) Multiple abrasions (Acute) Left rib fracture (Acute) Contusion of face (Acute) CHI (closed head injury) (Acute) Multiple falls (Acute) Rhabdomyolysis (Acute) Alcohol intoxication (Acute) Alcohol use Rib fractures Rhabdomyolysis Fall Trigger finger Encounter for pre-operative examination COVID-19 (Acute) Menopausal symptoms Vocal cord dysfunction LPRD (laryngopharyngeal reflux disease) Chronic cough Dyslipidemia Type 1 diabetes Nonproductive cough Former smoker HTN (hypertension) IBS (irritable bowel syndrome) Asthma Diabetes Medical History RUQ pain scheduled for Apr 19 endo at [facility] Short of breath on exertion Palpitations on occasion Diastolic dysfunction per recent ECHO at [facility] COVID-26 July 2021 PONV (postoperative nausea and vomiting) Osteoarthritis IBS (irritable bowel syndrome) GERD (gastroesophageal reflux disease) Insulin pump in place DM type 1 (diabetes mellitus, type 1) TMJ (temporomandibular joint disorder) wears guardian ad litem > has not locked, just painful Anxiety HTN (hypertension) HLD (hyperlipidemia) Asthma rare use of PRN inh Surgical History History of carpal tunnel release bilat History of shoulder surgery Rt S/P trigger finger release right middle and thumb History of non-cataract eye surgery for retina issue > bilat History of surgery scar tissure removed buttocks History of colonoscopy Family History Aunt Cancer Cervical cancer Father Hearing loss Heart disease Hypertension Asthma Myocardial infarction Prostate cancer Other Diabetes Dyslipidemia No family history of adverse response to anesthesia Denies family history of Ovarian cancer Breast cancer Colorectal cancer Social History Smoking Status: Former smoker Age Quit Using Tobacco: 43; Second Hand Exposure: No; Do You Dip or Chew Tobacco: No; Hx Alcohol Use: Yes Alcohol type: beer and wine Hx Substance Use: No Preferred Language: Cypriot Communication Ability: Effective Hearing Ability: Normal Forensic Pathologist Required: No Beliefs That Will Affect Care: None Current Living Situation: Spouse current occupation: Registered Nurse Feels Safe at Home: Yes Assistive Devices: Glasses Allergies Allergies Allergy/AdvReac Type Severity Reaction Status Date / Time hydrocodone [From [place]] AdvReac Nausea Verified 07/16/24 13:44 Home Meds Home Medications Medication Instructions Recorded Confirmed pravastatin 10 mg tablet 10 mg PO QPM 04/25/19 07/16/24 insulin aspart U-100 100 unit/mL See Rx Instructions continuous 05/25/19 07/16/24 subcutaneous solution (Novolog subcutaneous infusion DAILY U-100 Insulin aspart) blood-glucose sensor ([employer] G6 #3 ea 06/12/19 03/02/23 Sensor device) ropinirole 0.25 mg tablet 0.25 mg PO HS PRN Discomfort 11/25/21 07/16/24 albuterol sulfate 90 mcg/actuation 1 inh inhalation QID PRN Wheezing 03/29/23 07/16/24 aerosol inhaler escitalopram oxalate 20 mg tablet 20 mg PO HS 03/29/23 07/16/24 furosemide 20 mg tablet 20 mg PO QAM 03/29/23 07/16/24 conj estrogen-medroxyprogesterone 1 tab PO DAILY 07/16/24 07/16/24 0.45 mg-1.5 mg tablet (Prempro) gabapentin 300 mg capsule 300 mg PO QPM 07/16/24 07/16/24 losartan 100 mg tablet 100 mg PO PM 07/16/24 07/16/24 metoprolol succinate 25 mg 25 mg PO DAILY PRN Prior to 07/16/24 07/16/24 tablet,extended release 24 hr Exercise semaglutide 0.25 mg or 0.5 mg (2 0.25 mg subcut WK 07/16/24 07/16/24 mg/3 mL) subcutaneous pen injector (Ozempic) trazodone 150 mg tablet 75 mg PO HS 07/16/24 07/16/24 valacyclovir 500 mg tablet 500 mg PO QAM 07/16/24 07/16/24 Results & Data (ED) Vital Signs Vital Signs - 24 hr 07/16/24 10:23 07/16/24 10:41 07/16/24 11:10 Temperature 36.5 C Temperature Source Temporal Artery Scan Pulse Rate 111 H 107 H Pulse Rate [Apical] 106 H Respiratory Rate 18 24 Respiratory Effort / Characteristics Spontaneous Non-Labored Spontaneous Respiratory Depth Normal Normal Respiratory Pattern Regular Blood Pressure 145/87 H Blood Pressure [Left Arm] 136/97 Blood Pressure Mean 106 Blood Pressure Mean [Left Arm] 110 Pulse Oximetry 98 95 Oxygen Delivery Method Room Air Room Air Oxygen Flow Rate Sepsis Recent Fever Within 48 Hours No Sepsis New/Unexplained Change in Mental Status N/A Sepsis Action Taken by Nursing No Action Required 07/16/24 11:10 07/16/24 11:10 07/16/24 11:53 Temperature 36.8 C Temperature Source Pulse Rate 102 H Pulse Rate [Apical] Respiratory Rate 20 Respiratory Effort / Characteristics Respiratory Depth Respiratory Pattern Blood Pressure 136/97 Blood Pressure [Left Arm] Blood Pressure Mean Blood Pressure Mean [Left Arm] Pulse Oximetry 95 95 94 Oxygen Delivery Method Room Air Room Air Room Air Oxygen Flow Rate 0 Sepsis Recent Fever Within 48 Hours Sepsis New/Unexplained Change in Mental Status Sepsis Action Taken by Nursing 07/16/24 12:31 Temperature Temperature Source Pulse Rate Pulse Rate [Apical] 102 H Respiratory Rate 17 Respiratory Effort / Characteristics Respiratory Depth Respiratory Pattern Blood Pressure Blood Pressure [Left Arm] 136/71 Blood Pressure Mean Blood Pressure Mean [Left Arm] 92 Pulse Oximetry 95 Oxygen Delivery Method Room Air Oxygen Flow Rate Sepsis Recent Fever Within 48 Hours Sepsis New/Unexplained Change in Mental Status Sepsis Action Taken by Nursing Laboratory Data 07/16/24 10:41 07/16/24 10:41 Lab Results 07/16/24 07/16/24 07/16/24 Range/Units 10:34 10:41 10:48 WBC 14.23 H (4.8-10.8) K/ul RBC 4.29 (4.20-5.40) M/uL Hgb 13.3 (12.0-16.0) g/dl POC Hgb 13.9 (12.0-16.0) g/dl Hct 39.3 (37.0-47.0) % POC Hct 41 (37-47) % MCV 91.6 (80.0-100.0) fL MCH 31.0 (25.0-34.0) pg MCHC 33.8 (32.0-36.0) g/dL RDW Std Deviation 40.5 (36.4-46.3) fL RDW Coeff of Sammy 12.2 (11.5-14.5) % Plt Count 329 (130-400) K/uL MPV 8.5 L (9.4-12.4) fL Immature Gran % (Auto) 0.3 % Neut % (Auto) 87.3 % Lymph % (Auto) 7.7 % [place] % (Auto) 4.6 % Eos % (Auto) 0.0 % Baso % (Auto) 0.1 % Neut # (Auto) 12.43 H (1.40-6.50) K/uL Lymph # (Auto) 1.09 L (1.20-3.40) K/uL [place] # (Auto) 0.65 H (0.11-0.59) K/uL Eos # (Auto) 0.00 (0.00-0.50) K/uL Baso # (Auto) 0.02 (0.00-0.20) K/uL Immature Gran # (Auto) 0.04 (0.01-0.20) K/uL PT Cancelled INR Cancelled APTT Cancelled PTT Ratio Cancelled POC Sodium 136 (135-144) mmol/L Sodium 134 L (136-145) mmol/L POC Potassium 4.1 (3.3-5.0) mmol/L Potassium 4.2 (3.5-5.1) mmol/L POC Chloride 101 (101-112) mmol/L Chloride 103 (98-107) mmol/L Carbon Dioxide 22 (21-32) mmol/L POC Total CO2 21 L (24-31) mmol/L Anion Gap 9 (3-11) POC Anion Gap 18.0 (16-25) mmol/L POC BUN 12 (7-18) mg/dl BUN 12 (6-23) mg/dl Creatinine 0.59 L (0.6-1.2) mg/dl POC Creatinine 0.8 (0.6-1.3) mg/dl Est Cr Clr Drug Dosing 119.6 ml/min eGFR 105.71 BUN/Creatinine Ratio 20.3 H (10-20) Glucose 105 H (70-99(Fasting)) mg/dl POC Glucose 108 H (70-99) mg/dl POC Glucose (other) 105 H (70-99) mg/dl Calcium 8.9 (8.6-10.3) mg/dl POC Ioniz Calcium Robert 1.11 L (1.12-1.32) mmol/l Magnesium 1.8 (1.7-2.4) mg/dl Total Bilirubin 0.5 (0.2-1.0) mg/dl AST 39 (13-39) U/L ALT 17 (7-52) U/L Alkaline Phosphatase 61 (34-104) U/L Total Creatine Kinase 1902 H (26-192) U/L Troponin I High Sens 3.8 (0-14) pg/ml Total Protein 7.5 (6.0-8.3) gm/dl Albumin 4.4 (3.4-5.0) gm/dl Globulin 3.1 (2.5-4.0) gm/dl Albumin/Globulin Ratio 1.4 (0.9-2) Lipase 6 L (11-82) U/L Ethyl Alcohol mg/dL (<10.0) mg/dl 07/16/24 07/16/24 07/16/24 Range/Units 10:50 11:18 12:47 WBC (4.8-10.8) K/ul RBC (4.20-5.40) M/uL Hgb (12.0-16.0) g/dl POC Hgb (12.0-16.0) g/dl Hct (37.0-47.0) % POC Hct (37-47) % MCV (80.0-100.0) fL MCH (25.0-34.0) pg MCHC (32.0-36.0) g/dL RDW Std Deviation (36.4-46.3) fL RDW Coeff of Sammy (11.5-14.5) % Plt Count (130-400) K/uL MPV (9.4-12.4) fL Immature Gran % (Auto) % Neut % (Auto) % Lymph % (Auto) % [place] % (Auto) % Eos % (Auto) % Baso % (Auto) % Neut # (Auto) (1.40-6.50) K/uL Lymph # (Auto) (1.20-3.40) K/uL [place] # (Auto) (0.11-0.59) K/uL Eos # (Auto) (0.00-0.50) K/uL Baso # (Auto) (0.00-0.20) K/uL Immature Gran # (Auto) (0.01-0.20) K/uL PT 10.6 INR 1.0 APTT 27 PTT Ratio 1.0 POC Sodium (135-144) mmol/L Sodium (136-145) mmol/L POC Potassium (3.3-5.0) mmol/L Potassium (3.5-5.1) mmol/L POC Chloride (101-112) mmol/L Chloride (98-107) mmol/L Carbon Dioxide (21-32) mmol/L POC Total CO2 (24-31) mmol/L Anion Gap (3-11) POC Anion Gap (16-25) mmol/L POC BUN (7-18) mg/dl BUN (6-23) mg/dl Creatinine (0.6-1.2) mg/dl POC Creatinine (0.6-1.3) mg/dl Est Cr Clr Drug Dosing ml/min eGFR BUN/Creatinine Ratio (10-20) Glucose (70-99(Fasting)) mg/dl POC Glucose 93 (70-99) mg/dl POC Glucose (other) (70-99) mg/dl Calcium (8.6-10.3) mg/dl POC Ioniz Calcium Robert (1.12-1.32) mmol/l Magnesium (1.7-2.4) mg/dl Total Bilirubin (0.2-1.0) mg/dl AST (13-39) U/L ALT (7-52) U/L Alkaline Phosphatase (34-104) U/L Total Creatine Kinase (26-192) U/L Troponin I High Sens (0-14) pg/ml Total Protein (6.0-8.3) gm/dl Albumin (3.4-5.0) gm/dl Globulin (2.5-4.0) gm/dl Albumin/Globulin Ratio (0.9-2) Lipase (11-82) U/L Ethyl Alcohol mg/dL 162.3 H (<10.0) mg/dl Administered Medications Sodium Chloride (Nss) 1,000 mls @ 200 mls/hr IV .Q5H ANGI Stop: 07/17/24 10:44 Last Admin: 07/16/24 11:54 Dose: 200 mls/hr Documented By: QUEENIE Discontinued Medications Acetaminophen (Ofirmev) 1,000 mg in 100 mls @ 400 mls/hr IV NOW STA Stop: 07/16/24 10:56 Last Infusion: 07/16/24 11:36 Dose: Infused Documented By: Admin: 07/16/24 10:48 Dose: 400 mls/hr Documented By: CHRISTIE Sodium Chloride (Nss) 500 mls @ 999 mls/hr IV .Q31M ONE Stop: 07/16/24 11:12 Last Infusion: 07/16/24 11:36 Dose: Infused Documented By: Admin: 07/16/24 10:52 Dose: 999 mls/hr Documented By: CHRISTIE Ioversol (Optiray 320 100ml) 94 ml IV ONCE ONE Stop: 07/16/24 10:52 Last Admin: 07/16/24 10:51 Dose: 94 ml Documented By: KENNETH Ondansetron HCl (Ondansetron Inj 2 Mg/Ml 2 Ml Vial) 4 mg IV NOW STA Stop: 07/16/24 10:43 Last Admin: 07/16/24 10:48 Dose: 4 mg Documented By: CHRISTIE Imaging Data Radiologist's Impression: Chest X-Ray 07/16/24 10:31 XR chest 1V portable CLINICAL HISTORY: Trauma COMPARISON STUDY: 07/09/2022 FINDINGS: Stable mild cardiomegaly without pulmonary vascular congestion. No effusion, consolidation, or pneumothorax. There are a few minimally displaced fractures lower lateral left ribs. IMPRESSION: Left rib fractures with no pneumothorax seen. ACT 112: Negative or not required by law. Electronically signed by: Sidney Pickering M.D. 07/16/2024 10:59 AM Abdomen/Pelvis CT 07/16/24 10:41 CHEST, ABDOMEN, AND PELVIS CT WITH CONTRAST HISTORY: Trauma TECHNIQUE: Multiaxial CT images of the chest , abdomen, and pelvis were performed following the IV administration of 90 cc of Optiray. A dose lowering technique was utilized adhering to the principles of ALARA. COMPARISON STUDY: 05/05/2023 FINDINGS: CHEST: There is no pulmonary contusion, pleural effusion, or pneumothorax. No mediastinal hematoma or evidence of thoracic aortic injury. No pericardial effusion. ABDOMEN: Liver, gallbladder, spleen, pancreas, kidneys, and adrenal glands show no evidence of acute injury. Stable small cysts at the right kidney. No hydronephrosis bilaterally. No evidence of abdominal aortic injury or aneurysm. There are mild atherosclerotic calcifications. Pelvis: Uterus and adnexa are grossly unremarkable. Urinary bladder is decompressed. No bowel inflammation or obstruction. No free fluid or free air. Osseous structures: No acute fracture seen at the visualized osseous structures. IMPRESSION: No acute injury seen at the chest, abdomen, or pelvis. ACT 112: Negative or not required by law. Electronically signed by: Sidney Pickering M.D. 07/16/2024 11:[address] 07/16/24 10:41 CHEST, ABDOMEN, AND PELVIS CT WITH CONTRAST HISTORY: Trauma TECHNIQUE: Multiaxial CT images of the chest , abdomen, and pelvis were performed following the IV administration of 90 cc of Optiray. A dose lowering technique was utilized adhering to the principles of ALARA. COMPARISON STUDY: 05/05/2023 FINDINGS: CHEST: There is no pulmonary contusion, pleural effusion, or pneumothorax. No mediastinal hematoma or evidence of thoracic aortic injury. No pericardial effusion. ABDOMEN: Liver, gallbladder, spleen, pancreas, kidneys, and adrenal glands show no evidence of acute injury. Stable small cysts at the right kidney. No hydronephrosis bilaterally. No evidence of abdominal aortic injury or aneurysm. There are mild atherosclerotic calcifications. Pelvis: Uterus and adnexa are grossly unremarkable. Urinary bladder is decompressed. No bowel inflammation or obstruction. No free fluid or free air. Osseous structures: No acute fracture seen at the visualized osseous structures. IMPRESSION: No acute injury seen at the chest, abdomen, or pelvis. ACT 112: Negative or not required by law. Electronically signed by: Sidney Pickering M.D. 07/16/2024 11:[address] 07/16/24 10:42 CT cervical spine wo con CT DOSE: 3739.25 mGy.cm CLINICAL HISTORY: Trauma. COMPARISON: None TECHNIQUE: Multiple axial CT images of the cervical spine were obtained without contrast. A dose lowering technique was utilized adhering to the principles of ALARA. FINDINGS: There is moderate lower cervical degenerative disc disease. No fracture or subluxation. IMPRESSION: No cervical spine fracture seen. ACT 112: Negative or not required by law. The above report was generated using voice recognition software. It may contain grammatical, syntax or spelling errors. Electronically signed by: Sidney Pickering M.D. 07/16/2024 11:[address] 07/16/24 10:42 CT facial bones wo con CLINICAL HISTORY: Trauma. COMPARISON STUDY: None TECHNIQUE: High-resolution CT scan of the facial bones is performed. Images are reviewed in the axial, sagittal, and coronal planes. IV contrast was not administered for this examination. A dose lowering technique was utilized adhering to the principles of ALARA. FINDINGS: There is minimal irregularity at the right nasal bone compared to the left consistent with nondisplaced fracture of uncertain chronicity. There is right periorbital soft tissue swelling. No intraorbital hematoma seen. No fracture seen at the orbits, zygoma, maxilla, pterygoid plates, and mandible. There is mild mucosal thickening in the maxillary sinuses. No sinus fluid or hemorrhage seen. There is mild S-shaped morphology of the nasal septum. IMPRESSION: 1. Nondisplaced right nasal bone fracture, possibly chronic. 2. Otherwise no orbital or facial fracture seen. ACT 112: Negative or not required by law. The above report was generated using voice recognition software. It may contain grammatical, syntax or spelling errors. Electronically signed by: Sidney Pickering M.D. 07/16/2024 11:[address] 07/16/24 10:42 CT head/brain wo con CLINICAL HISTORY: Trauma. TECHNIQUE: Multiple axial CT images of the head were obtained without contrast. A dose lowering technique was utilized adhering to the principles of ALARA. COMPARISON: None FINDINGS: There is a mild right periorbital soft tissue hematoma with no intraorbital hematoma seen. No intracranial hemorrhage seen. No mass effect, midline shift, or hydrocephalus. No skull fracture seen. Visualized paranasal sinuses and mastoid air cells are clear. IMPRESSION: 1. No acute intracranial findings. 2. Mild right periorbital soft tissue hematoma. ACT 112: Negative or not required by law. The above report was generated using voice recognition software. It may contain grammatical, syntax or spelling errors. Electronically signed by: Sidney Pickering M.D. 07/16/2024 11:15 AM Knee X-Ray 07/16/24 10:42 XR knee LT 1 or 2V routine, XR knee RT 1 or 2V routine CLINICAL HISTORY: fall COMPARISON: None FINDINGS: No fracture or dislocation seen at either knee. No significant degenerative change. IMPRESSION: No fracture seen at either knee. ACT 112: Negative or not required by law. Electronically signed by: Sidney Pickering M.D. 07/16/2024 11:28 AM Knee X-Ray 07/16/24 10:42 XR knee LT 1 or 2V routine, XR knee RT 1 or 2V routine CLINICAL HISTORY: fall COMPARISON: None FINDINGS: No fracture or dislocation seen at either knee. No significant degenerative change. IMPRESSION: No fracture seen at either knee. ACT 112: Negative or not required by law. Electronically signed by: Sidney Pickering M.D. 07/16/2024 11:28 AM Discharge Plan Visit Data Chief Complaint: Trauma Stated Complaint: FALL ED Provider: Chance Stokes Discharge Problem: Alcohol intoxication, Rhabdomyolysis, Multiple falls, CHI (closed head injury), Contusion of face, Left rib fracture, Multiple abrasions
[2024-07-16] MEDS: THIAMINE HCL 200 MG in SODIUM CHLORIDE 0.9% 50 ML IV SCH (14:12)
[2024-07-16] MEDS: IBUPROFEN 200 MG/10 ML UDC PO STA (14:12)
[2024-07-16] MEDS: LIDOCAINE 5% 1 PATCH TD STA (14:12)
[2024-07-16] MEDS: BACITRACIN/POLYMYXIN B SULFATE 90 APPLN/28.4 GM TUBE EXT SCH (14:12)
[2024-07-16] MEDS ORDERED: DEXTROSE 50% 50 ML SYRINGE IV PRN (14:59)
[2024-07-16] MEDS ORDERED: GLUCOSE 10 TAB/TUBE PO PRN (14:59)
[2024-07-16] MEDS ORDERED: INSULIN ASPART 100 UNITS/ML VIAL SC PRN (14:59)
[2024-07-16] MEDS ORDERED: GLUCAGON FOR INJ 1 MG VIAL SQ PRN (14:59)
[2024-07-16] MEDS ORDERED: GLUCOSE 40% GEL 15 GM TUBE PO PRN (14:59)
[2024-07-16] MEDS: INSULIN, Rapid-Acting PUMP SC SCH (17:26)
[2024-07-16] MEDS: ONDANSETRON INJ 2 MG/ML 2 ML VIAL IV PRN (17:30)
[2024-07-16] MEDS: cloNIDine HCL 0.1 MG TAB PO ONE (21:05)
[2024-07-16] MEDS: AZELASTINE HCL 0.1% NASAL 200 SPRAYS/27,400 MCG BTL NAE SCH (21:05)
[2024-07-16] MEDS: CHOLESTYRAMINE LIGHT 4 GM PKT PO SCH (21:06)
[2024-07-16] MEDS: GABAPENTIN 300 MG CAP PO SCH (21:09)
[2024-07-16] MEDS: traZODone HCL 50 MG TAB PO SCH (22:07)
[2024-07-16] MEDS: ESCITALOPRAM OXALATE 20 MG TAB PO SCH (22:07)
[2024-07-16] MEDS: rOPINIRole HCL 0.25 MG TABLET PO SCH (22:08)
[2024-07-16 23:21] LABS: Appearance Urine Clear (Clear); Bacteria Urine Automated None Seen (None Seen); Bilirubin Urine Negative (Negative); Blood Urine 2+ (Negative); Cast Urine Automated 0-2 /lpf (0-2); Color Urine Yellow; Epithelial Cell Urine Auto 0-2 /hpf (0-2); Glucose Urine UA Negative (Negative); Ketones Urine 2+ (Negative); Leukocyte Esterase Urine Negative (Negative); Nitrite Urine Negative (Negative); Protein Urine Negative (Negative); Specific Gravity Urine 1.038 (1.000-1.030); Urobilinogen Urine Negative (Negative); WBC Urine Automated 0-5 /hpf (0-5)
[2024-07-17] MEDS: CARBOHYDRATES FOR HYPOGLYCEMIA PO PRN (04:08)
[2024-07-17] MEDS ORDERED: PHARMACY GLYCEMIC MGMT CONSULT PRN (04:23)
--- NOTE | 2024-07-17 05:47 | Electrocardiogram Report ---
Test Reason : Blood Pressure : */* mmHG Vent. Rate : 100 BPM Atrial Rate : 100 BPM P-R Int : 174 ms QRS Dur : 76 ms QT Int : 350 ms P-R-T Axes : 42 51 36 degrees QTcB Int : 451 ms Normal sinus rhythm Normal ECG When compared with ECG of 09-Jul-2022 19:29, No significant change was found Confirmed by Contreras Lema ([id number]) on 07/17/2024 5:46:39 AM Referred By: Irena Humphrey Confirmed By: Contreras Lema
[2024-07-17 06:38] LABS: Basophils # (auto) 0.02 K/uL (0.00-0.20); Basophils % (auto) 0.3 %; Eosinophils # (auto) 0.01 K/uL (0.00-0.50); Eosinophils % (auto) 0.2 %; Hematocrit (blood only) 30.9 % (37.0-47.0); Hemoglobin 10.2 g/dl (12.0-16.0); Immature Granulocytes # (auto) 0.02 K/uL (0.01-0.20); Immature Granulocytes % (auto) 0.3 %; Lymphocytes % (auto) 18.2 %; Mean Corpuscular Hemoglobin 30.9 pg (25.0-34.0); Mean Corpuscular Volume 93.6 fL (80.0-100.0); Mean Platelet Volume 8.9 fL (9.4-12.4); Monocytes # (auto) 0.52 K/uL (0.11-0.59); Monocytes % (auto) 8.6 %; Neutrophils # (auto) 4.36 K/uL (1.40-6.50); Neutrophils % (auto) 72.4 %; Platelet Count 211 K/uL (130-400); RDW Coefficient of Variation 12.3 % (11.5-14.5); RDW Standard Deviation 43.1 fL (36.4-46.3); White Blood Count 6.03 K/ul (4.8-10.8)
[2024-07-17 06:54] LABS: Albumin Globulin Ratio 1.5 (0.9-2); Albumin Level 3.1 gm/dl (3.4-5.0); BUN Creatinine Ratio 16.1 (10-20); Bilirubin,Total 0.8 mg/dl (0.2-1.0); Calcium 7.7 mg/dl (8.6-10.3); Creatinine Clr Calc Pharmacy 115.5 ml/min; Globulin 2.1 gm/dl (2.5-4.0); Magnesium 1.7 mg/dl (1.7-2.4); Potassium 4.2 mmol/L (3.5-5.1); Total Protein 5.2 gm/dl (6.0-8.3)
[2024-07-17 07:09] LABS: Thyroid Stimulating Hormone 0.928 uIu/ml (0.300-4.500)
[2024-07-17] MEDS: FOLIC ACID 1 MG TAB PO SCH (07:47)
[2024-07-17] MEDS: CYANOCOBALAMIN (B-12) 500 MCG TABLET PO SCH (07:47)
[2024-07-17] MEDS: traMADol HCL 50 MG TABLET PO PRN (07:48)
[2024-07-17 08:40] LABS: Estimated Average Glucose 128 mg/dl; Hemoglobin A1C 6.1 % (4.5-5.6)
[2024-07-17] MEDS: ASPIRIN 81 MG ECTAB PO SCH (09:06)
[2024-07-17] MEDS: FUROSEMIDE 20 MG TAB PO SCH (09:34)
--- NOTE | 2024-07-17 10:32 | Hospitalist Progress Note ---
Date of Service July 17, 2024 Assessment & Plan (1) Rib fractures: Plan: 54 y/o female presented as a trauma alert after fall 2nd to alcohol use evening prior to presentation to ED. ETOH 160 on admission (approximately 12 hours since last drink), with elevated CK at 1900 suspect due to fall/being down. Imaging on admission revealed nondisplaced left eighth and ninth rib fractures, a nondisplaced right nasal bone fracture (possibly chronic), and mild right periorbital soft tissue hematoma. - Continue Pulmonary toilet, incentive spirometer, supplemental O2 as needed - Continue lidocaine patch, Tylenol as needed, tramadol 50 mg q6h as needed - Stable on room air - PT/OT recommended return home on discharge (2) Rhabdomyolysis: Plan: CK 1902 on admission with normal LFTs and renal function. Suspect 2nd to fall/being down following alcohol intoxication. Given IV fluid on admission - CK slightly increased to 2393 - Hold losartan - UA consistent with mild rhabdo, no signs of acute infection - Repeat CK in AM (3) Alcohol use: Plan: Not every day user but does binge drink when she does -- worsened recently with passing of her parents and U liaison consulted - Etoh level 160 on admission but last drink ~12hrs prior to coming in - Appreciate psych liaison assistance - Patient denied wanting resources at this time; plans to utilize employee assistance program at work - Continue Lexapro 20 mg HS - Thiamine/b12/folate added to AM labs (4) Multiple falls: Plan: Multiple falls prior to admission secondary to alcohol use. Trauma alert on arrival - Acute blood loss anemia from falls/bruising. Hgb 10.2, no indication for bl ood transfusion at this time. Continue to monitor (5) Type 1 diabetes: Plan: Pharmacy consulted for glycemic assistance while inpatient A1c 6.1% (6) HTN (hypertension): Plan: continue meds w/ exceptions as noted above (7) Asthma: Plan: lung exam stable and albuterol HFA available as needed pulm toilet for rib fractures and pain control as outlined monitor for nebs if needed Plan DVT proph: SCD ordered but will hold off chemoproph given fracture/hematoma and bruising Dispo: anticipate discharge home 07/18 Admission and Anticipated Discharge Date Admission Date: July 16, 2024 Subjective Patient seen and evaluated at bedside. She had just finished working with PT/OT and reports she did well. She notes that her rib pain is most prominent, though she also has sacral pain and nausea currently. Asked RN to provide antiemetic. She does not remember falling. She denies lightheadedness/dizziness at baseline and believes it was her alcohol intake that caused her falls. She reports feeling embarrassed regarding these events and is tearful when discussing the passing of her parents recently. Emotional support provided. Discussed potential discharge home tomorrow. No additional complaints or concerns at this time. Physical Exam Physical Exam: General: No acute distress, nondiaphoretic, well-developed, well-nourished. Anxious and tearful. Skin: Abrasions noted on knees and elbows bilaterally. HEENT: Periorbital contusions R>L, contusion on chin. PERRLA. Cardiac: Regular rate and rhythm without murmurs gallops or rubs. Telemetry reviewed with NSR 80s. Chest wall tenderness in region of rib fractures. Pulm: Diminished at bases bilaterally with poor inspiratory effort. Otherwise clear to auscultation bilaterally without wheezes, rales or rhonchi. Normal respiratory effort. 96% on room air. Abdominal: Soft, nontender, nondistended. Bowel sounds present. Neuro: A&O x3. No focal neurological deficits. Results & Data Results & Data Vital Signs (Past 12 Hours) Vital Signs Temp Pulse Pulse Resp BP Pulse Ox O2 Del Method 07/17/24 08:05 97.9 F 83 18 106/64 96 Room Air 07/17/24 02:54 97.9 F 86 16 109/66 95 Room Air 07/16/24 22:47 98.6 F 91 H 17 121/72 94 Room Air Laboratory Results Reviewed CBC with differential Reviewed CMP/chemistries Diagnostic Findings Reviewed telemetry PG Care Time/CCT Total # of Minutes Spent Total Time Spent with Patient: Total time spent is greater than 50% in coordination of care (as documented) at patient's floor/unit and/or counseling patient: Coding Level of Care Code 49667 SUB INP/OBS CARE 2/35MIN Diagnoses Rib fractures S22.49XA Rhabdomyolysis M62.82 Alcohol use F10.90 Multiple falls R29.6 Type 1 diabetes E10.9 HTN (hypertension) I10 Asthma J45.909
[2024-07-17] MEDS: LOSARTAN POTASSIUM 50 MG TAB PO SCH (20:55)
[2024-07-18 06:06] LABS: Hematocrit (blood only) 29.7 % (37.0-47.0); Mean Corpuscular Hemoglobin 31.3 pg (25.0-34.0); Mean Corpuscular Hgb Conc 33.7 g/dL (32.0-36.0); Mean Corpuscular Volume 93.1 fL (80.0-100.0); Mean Platelet Volume 8.9 fL (9.4-12.4); Platelet Count 199 K/uL (130-400); RDW Coefficient of Variation 12.1 % (11.5-14.5); RDW Standard Deviation 41.7 fL (36.4-46.3); Red Blood Count 3.19 M/uL (4.20-5.40); White Blood Count 5.67 K/ul (4.8-10.8)
[2024-07-18 06:53] LABS: Folate (Folic Acid),Ser orPlas 11.38 ng/ml (>5.38)
[2024-07-18 08:07] VITALS: O2SAT 92
[2024-07-18] MEDS: oxyCODONE HCL IR 5 MG TAB (IMMEDIATE RELEASE) PO PRN (10:05)
[2024-07-18 10:59] VITALS: BP 136/65; RESP 17; TEMP 98.1
--- NOTE | 2024-07-18 11:21 | XRay Report ---
XR chest 1V portable CLINICAL HISTORY: Sharp pain, recent rib fractures COMPARISON STUDY: 07/16/2024 FINDINGS: Single view chest demonstrates obscuration of the left hemidiaphragm with patchy linear den sities in left lung base. Left lower rib fractures are once again seen. There is no pneumothorax. Rig ht lung is clear. The heart and pulmonary vascularity are unremarkable for technique. IMPRESSION: Progressive left basilar discoid atelectasis most likely secondary to pain and splinting . A developing infectious process is not excluded. No pneumothorax ACT 112: Negative or not required by law. Electronically signed by: Brittany Gonzalez M.D. 07/18/2024 11:19 AM
[2024-07-18 16:37] VITALS: PULSE 78
--- NOTE | 2024-07-18 16:47 | Discharge Summary ---
Discharge Summary Date of Service July 18, 2024 Principal Dx & Hospital Course #1 = Principal Diagnosis (1) Rib fractures: 54 y/o female presented as a trauma alert after fall 2nd to alcohol use evening prior to presentation to ED. ETOH 160 on admission (approximately 12 hours since last drink), with elevated CK at 1900 suspect due to fall/being down. Imaging on admission revealed nondisplaced left eighth and ninth rib fractures, a nondisplaced right nasal bone fracture (possibly chronic), and mild right periorbital soft tissue hematoma. CXR on day of discharge noted left basilar atelectasis, no pneumothorax. She has remained stable on room air. PT/OT recommended return home. - Tylenol 1,000 mg q8h prn mild pain, Tramadol 50 mg a6h prn moderate pain, Oxycodone 5 mg q6h prn severe pain, lidocaine patch q12h prn - Continue incentive spirometer (2) Rhabdomyolysis: CK 1902 on admission with normal LFTs and renal function. Suspect 2nd to fall/being down following alcohol intoxication. Given IV fluid on admission - CK peaked at 2393, downtrended to 1500 - Held losartan while inpatient; resumed on discharge - UA consistent with mild rhabdo, no signs of acute infection (3) Alcohol use: Not every day user but does binge drink when she does -- worsened recently with passing of her parents and U liaison consulted. Appreciate psych liaison assistance - Etoh level 160 on admission but last drink ~12hrs prior to coming in - Patient denied wanting resources at this time; plans to utilize employee assistance program at work - Continue Lexapro 20 mg HS - Folate WNL, Vitamin B12 low/normal, Vitamin B1 pending (send out lab; will defer to PCP to follow-up on) Increased B12 supplement to 1,000 mcg daily (4) Multiple falls: Multiple falls prior to admission secondary to alcohol use. Trauma alert on arrival - Acute blood loss anemia from falls/bruising. Hgb stable at 10.0 - Polysporin ointment TID to abrasions on knees, elbow, face (5) Type 1 diabetes: Pharmacy consulted for glycemic assistance while inpatient A1c 6.1% (6) HTN (hypertension): Chronic, stable Continue home regimen (7) Asthma: Chronic, stable Albuterol HFA available as needed Plan DVT proph: SCDs Dispo: Discharged home 07/18 Notes For Next Care Provider Follow-up on Vitamin B1 level Recommend rechecking Vitamin B12 in 3-4 months Provide further counseling/resources regarding alcohol use Medication Changes From Visit Tramadol 50 mg q6h prn moderate pain Oxycodone 5 mg q6h prn severe pain Polysporin ointment TID to abrasions Lidocaine patches 5% Vit B12 1,000 mcg daily Admission HPI Per Admitting Provider 54yo female with history of alcohol use fell last night after drinking but unsure where/when/how she fell. Presented with bilateral eye/nose/jaw bruising. As clearing up, more of the store w/ drinking at the bar but had a fall while there and carried out by /other people and fell again getting out of the car into the house and was left by and ended up crawling back into the house w/ subsequent abrasions ot knee/elbows. Trauma alert in ER. Majority of imaging negative with exception sustained facial contusion but did note LEFT lateral EIGHTH and NINTH rib fractures. No PTX noted. Further discussion w/ ER provider and sacral pain does appear step off in that region and message to radiology for review. Mild rhabdo w/ CK 1900s on admission likely from being down from fall/alcohol use. Stopped drinking ~12 hrs ago and etoh ~160s on admission and suspect was in the 400s when initial fall. Eval in ER C1B, at bedside. Had occasional binge drinking in the past but patient does have increased stress/anxiety with her father passing a couple weeks ago and her mother 7 months prior to that. reports he missed the signs before they went out but that she had zaria doing well for a while. No hx DTs or withdrawal and doesn't drink everyday. Does have some left sided rib pain, abrasions to her knees present and wound RN to be consulted. Does take ozempic for weight loss/DM and last dose last week and due today. Occasional diarrhea/constipation at times but no acute changes. Does take lasix as needed but no significant edema and getting IVF at present but will monitor. Mild headache but reports feels like she has whiplash. C-collar in place but to alert if any worsening following removal and herman plan for MRI but CT cervical spine without acute fracture. does have BB to take w/ exercising, occasional palpitations. Will check TSH w/ next lab draw. No urinary symptoms reported or edema on exam. Discussed admission for IVF hydration, pain control/tx of ribs. C-colar in pace and monitor for any pain following to require MRI. Patient hopeful w/ pain control/fluids and therapy evals possible discharge in AM 3/10 . No smoking hx. Alcohol as above, binge drinking when occurs. Full code. No hx DVT/PE. Occupation: nurse at [employer] Discharge Exam General: No acute distress, nondiaphoretic, well-developed, well-nourished. Skin: Abrasions noted on knees and elbows bilaterally, as well as right side of forehead. Scattered contusions on arms and legs. HEENT: Periorbital contusions R>L, contusion on chin. PERRLA. Cardiac: Regular rate and rhythm without murmurs gallops or rubs. Telemetry reviewed with NSR 80s. Chest wall tenderness in region of rib fractures. Pulm: Diminished at bases bilaterally with poor inspiratory effort. Otherwise clear to auscultation bilaterally without wheezes, rales or rhonchi. Normal respiratory effort. 92% on room air. Abdominal: Soft, nontender, nondistended. Bowel sounds present. Neuro: A&O x3. No focal neurological deficits. Discharge Plan Discharge Items Patient Disposition: Home - Self-Care Reason For Visit: RIB FRACTURE, RHABDO, ETOH USE, FALL Discharge Diagnosis: Fall with associated left-sided rib fractures, right-sided nasal bone fracture, and mild rhabdomyolysis Activity: Per Instructions section Lifting: No more than 10 pounds Non-emergency contact: Primary Care Provider Call non-emergency contact if: you have any medication questions, your symptoms worsen and your pain is not controlled Follow-up/Referrals: Irena Humphrey PA-C [Primary Care Provider] - (Follow-up in 1-2 weeks) Diet: Carb Count or DM1 Addtl Attending Provider Instructions: Jennifer, Edgar were admitted to the hospital after multiple falls resulted in mild rhabdomyolysis, nondisplaced left eighth and ninth rib fractures, and nondisplaced right nasal bone fracture (possibly chronic). You were evaluated by PT and OT who recommended you return home on discharge from the hospital. You have improved during your hospitalization, but will need to continue treatment at home. Unfortunately, rib fractures can take up to 6 weeks to heal and can be uncomfortable throughout that time. Your prescriptions have been sent to the [facility] pharmacy on [address] I have written you a work note to excuse you through 07/24/2024. Upon discharge from the hospital: * Take Tylenol 1000 mg every 8 hours as needed for mild pain. * Take Tramadol 50 mg every 6 hours as needed for moderate pain. Do not drive or operate heavy machinery while taking Tramadol as it is a narcotic pain medicine. * Take oxycodone 5 mg every 6 hours as needed for severe pain. Do not drive or operate heavy machinery while taking oxycodone as it is a narcotic pain medicine. * Use Polysporin ointment 3 times daily on your abrasions to promote healing and prevent infection. * Use Lidocaine patches over your rib fractures. You can apply a patch for 12 hours, then remove for 12 hours, repeat. * Continue to use the incentive spirometer as directed. This will help expand your lungs and prevent an infection from developing. * Take Vitamin B12 (cyanocobalamin) 1,000 mcg daily. Your Vitamin B12 was on the lower end of normal, so this will help supplement that. * Continue your home medications as prescribed. * Follow-up with your PCP in 1-2 weeks. Please return to the hospital if you experience any of the following: Difficulty breathing, shortness of breath, chest pain, new or worsening abdominal pain, dizziness, lightheadedness, passing out, confusion, or any other symptoms concer tyson for you. It was a pleasure taking care of you while you were in the hospital! Pending Studies at Discharge: No Stand-Alone Forms: My [facility], Work/School Release, Smoking Cessation Medications and DC Order Prescriptions: New oxycodone 5 mg Tablet 5 mg PO Q6H PRN (Reason: severe pain (scale score 7-10)) Qty: 14 0RF tramadol 50 mg Tablet 50 mg PO Q6H PRN (Reason: moderate pain (scale score 5-6)) Qty: 14 0RF Polysporin 500-10,000 unit/gram Ointment In Packet 1 applic EXT TID Qty: 144 0RF lidocaine [Lidoderm] 5 % adhesive patch,medicated See Rx Instructions .ROUTE .COMPLEX Qty: 15 0RF Rx Instructions: leave on most painful area for up to 12 hrs cyanocobalamin (vitamin B-12) 500 mcg Tablet 1,000 mcg PO QAM Qty: 60 0RF Continued (DME) Dexcom G6 Sensor Device See Rx Instructions .ROUTE .MEDSUPPLY Qty: 3 Rx Instructions: Change every 10 days insulin aspart U-100 [Novolog U-100 Insulin aspart] 100 unit/mL solution See Rx Instructions continuous subcutaneous infusion DAILY Rx Instructions: Use up to 70 units continuous subcutaneous infusion daily; ropinirole 0.25 mg tablet 0.25 mg PO HS PRN (Reason: Discomfort) pravastatin 10 mg tablet 10 mg PO QPM furosemide 20 mg Tablet 20 mg PO QAM escitalopram oxalate 20 mg Tablet 20 mg PO HS albuterol sulfate 90 mcg/actuation Hfa Aerosol Inhaler 1 inh INHALATION QID PRN (Reason: Wheezing) trazodone 150 mg tablet 75 mg PO HS gabapentin 300 mg capsule 300 mg PO QPM metoprolol succinate 25 mg tablet extended release 24 hr 25 mg PO DAILY PRN (Reason: Prior to Exercise) losartan 100 mg tablet 100 mg PO PM Prempro 0.45-1.5 mg tablet 1 tab PO DAILY Ozempic 0.25 mg or 0.5 mg (2 mg/3 mL) pen injector 0.25 mg subcut WK Rx Instructions: Wednesday valacyclovir 500 mg tablet 500 mg PO QAM Discharge Orders: Discharge Order (Routine); Ordered 07/18/24 Ordered By: Luana Rich/Other Patient Handouts: ED Rib Fracture Admission Data Admit Date/Time: 07/16/24 12:50 Attending Provider: Stephen Vargas Admit Provider: Larry Paz Primary Care Provider: Irena Humphrey Other Providers: Larry Paz Other Interventions: Discharge Summary Assessment (RN) Last Done: 07/18/24 16:35 Hospital Stay Data Consultations 07/16/24 13:44 ED Decision to Admit Stat 07/16/24 16:41 Consult Behavioral Health Liaison Routine Diagnostic Imagining Performed Chest X-Ray 07/16/24 10:31 XR chest 1V portable CLINICAL HISTORY: Trauma COMPARISON STUDY: 07/09/2022 FINDINGS: Stable mild cardiomegaly without pulmonary vascular congestion. No effusion, consolidation, or pneumothorax. There are a few minimally displaced fractures lower lateral left ribs. IMPRESSION: Left rib fractures with no pneumothorax seen. ACT 112: Negative or not required by law. Electronically signed by: Sidney Pickering M.D. 07/16/2024 10:59 AM Abdomen/Pelvis CT 07/16/24 10:41 CHEST, ABDOMEN, AND PELVIS CT WITH CONTRAST HISTORY: Trauma TECHNIQUE: Multiaxial CT images of the chest , abdomen, and pelvis were performed following the IV administration of 90 cc of Optiray. A dose lowering technique was utilized adhering to the principles of ALARA. COMPARISON STUDY: 05/05/2023 FINDINGS: CHEST: There is no pulmonary contusion, pleural effusion, or pneumothorax. No mediastinal hematoma or evidence of thoracic aortic injury. No pericardial effusion. ABDOMEN: Liver, gallbladder, spleen, pancreas, kidneys, and adrenal glands show no evidence of acute injury. Stable small cysts at the right kidney. No hydronephrosis bilaterally. No evidence of abdominal aortic injury or aneurysm. There are mild atherosclerotic calcifications. Pelvis: Uterus and adnexa are grossly unremarkable. Urinary bladder is decompressed. No bowel inflammation or obstruction. No free fluid or free air. Osseous structures: No acute fracture seen at the visualized osseous structures. IMPRESSION: No acute injury seen at the chest, abdomen, or pelvis. ACT 112: Negative or not required by law. Electronically signed by: Sidney Pickering M.D. 07/16/2024 11:[address] 07/16/24 10:41 CHEST, ABDOMEN, AND PELVIS CT WITH CONTRAST HISTORY: Trauma TECHNIQUE: Multiaxial CT images of the chest , abdomen, and pelvis were performed following the IV administration of 90 cc of Optiray. A dose lowering technique was utilized adhering to the principles of ALARA. COMPARISON STUDY: 05/05/2023 FINDINGS: CHEST: There is no pulmonary contusion, pleural effusion, or pneumothorax. No mediastinal hematoma or evidence of thoracic aortic injury. No pericardial effusion. ABDOMEN: Liver, gallbladder, spleen, pancreas, kidneys, and adrenal glands show no evidence of acute injury. Stable small cysts at the right kidney. No hydronephrosis bilaterally. No evidence of abdominal aortic injury or aneurysm. There are mild atherosclerotic calcifications. Pelvis: Uterus and adnexa are grossly unremarkable. Urinary bladder is decompressed. No bowel inflammation or obstruction. No free fluid or free air. Osseous structures: No acute fracture seen at the visualized osseous structures. IMPRESSION: No acute injury seen at the chest, abdomen, or pelvis. ACT 112: Negative or not required by law. Electronically signed by: Sidney Pickering M.D. 07/16/2024 11:[address] 07/16/24 10:42 CT cervical spine wo con CT DOSE: 3739.25 mGy.cm CLINICAL HISTORY: Trauma. COMPARISON: None TECHNIQUE: Multiple axial CT images of the cervical spine were obtained without contrast. A dose lowering technique was utilized adhering to the principles of ALARA. FINDINGS: There is moderate lower cervical degenerative disc disease. No fracture or subluxation. IMPRESSION: No cervical spine fracture seen. ACT 112: Negative or not required by law. The above report was generated using voice recognition software. It may contain grammatical, syntax or spelling errors. Electronically signed by: Sidney Pickering M.D. 07/16/2024 11:[address] 07/16/24 10:42 CT facial bones wo con CLINICAL HISTORY: Trauma. COMPARISON STUDY: None TECHNIQUE: High-resolution CT scan of the facial bones is performed. Images are reviewed in the axial, sagittal, and coronal planes. IV contrast was not administered for this examination. A dose lowering technique was utilized adhering to the principles of ALARA. FINDINGS: There is minimal irregularity at the right nasal bone compared to the left consistent with nondisplaced fracture of uncertain chronicity. There is right periorbital soft tissue swelling. No intraorbital hematoma seen. No fracture seen at the orbits, zygoma, maxilla, pterygoid plates, and mandible. There is mild mucosal thickening in the maxillary sinuses. No sinus fluid or hemorrhage seen. There is mild S-shaped morphology of the nasal septum. IMPRESSION: 1. Nondisplaced right nasal bone fracture, possibly chronic. 2. Otherwise no orbital or facial fracture seen. ACT 112: Negative or not required by law. The above report was generated using voice recognition software. It may contain grammatical, syntax or spelling errors. Electronically signed by: Sidney Pickering M.D. 07/16/2024 11:[address] 07/16/24 10:42 CT head/brain wo con CLINICAL HISTORY: Trauma. TECHNIQUE: Multiple axial CT images of the head were obtained without contrast. A dose lowering technique was utilized adhering to the principles of ALARA. COMPARISON: None FINDINGS: There is a mild right periorbital soft tissue hematoma with no intraorbital hematoma seen. No intracranial hemorrhage seen. No mass effect, midline shift, or hydrocephalus. No skull fracture seen. Visualized paranasal sinuses and mastoid air cells are clear. IMPRESSION: 1. No acute intracranial findings. 2. Mild right periorbital soft tissue hematoma. ACT 112: Negative or not required by law. The above report was generated using voice recognition software. It may contain grammatical, syntax or spelling errors. Electronically signed by: Sidney Pickering M.D. 07/16/2024 11:15 AM Knee X-Ray 07/16/24 10:42 XR knee LT 1 or 2V routine, XR knee RT 1 or 2V routine CLINICAL HISTORY: fall COMPARISON: None FINDINGS: No fracture or dislocation seen at either knee. No significant degenerative change. IMPRESSION: No fracture seen at either knee. ACT 112: Negative or not required by law. Electronically signed by: Sidney Pickering M.D. 07/16/2024 11:28 AM Knee X-Ray 07/16/24 10:42 XR knee LT 1 or 2V routine, XR knee RT 1 or 2V routine CLINICAL HISTORY: fall COMPARISON: None FINDINGS: No fracture or dislocation seen at either knee. No significant degenerative change. IMPRESSION: No fracture seen at either knee. ACT 112: Negative or not required by law. Electronically signed by: Sidney Pickering M.D. 07/16/2024 11:28 AM Chest X-Ray 07/18/24 10:44 XR chest 1V portable CLINICAL HISTORY: Sharp pain, recent rib fractures COMPARISON STUDY: 07/16/2024 FINDINGS: Single view chest demonstrates obscuration of the left hemidiaphragm with patchy linear densities in left lung base. Left lower rib fractures are on ce again seen. There is no pneumothorax. Right lung is clear. The heart and pulmonary vascularity are unremarkable for technique. IMPRESSION: Progressive left basilar discoid atelectasis most likely secondary to pain and splinting. A developing infectious process is not excluded. No pneumothorax ACT 112: Negative or not required by law. Electronically signed by: Brittany Gonzalez M.D. 07/18/2024 11:19 AM Pending Results Patient Have Any Pending Studies at Discharge: No Discharge Instructions Given to Patient (Per Discharging Provider) Edgar Rodriguez were admitted to the hospital after multiple falls resulted in mild rhabdomyolysis, nondisplaced left eighth and ninth rib fractures, and nondisplaced right nasal bone fracture (possibly chronic). You were evaluated by PT and OT who recommended you return home on discharge from the hospital. You have improved during your hospitalization, but will need to continue treatment at home. Unfortunately, rib fractures can take up to 6 weeks to heal and can be uncomfortable throughout that time. Your prescriptions have been sent to the [facility] pharmacy on [address] I have written you a work note to excuse you through 07/24/2024. Upon discharge from the hospital: * Take Tylenol 1000 mg every 8 hours as needed for mild pain. * Take Tramadol 50 mg every 6 hours as needed for moderate pain. Do not drive or operate heavy machinery while taking Tramadol as it is a narcotic pain medicine. * Take oxycodone 5 mg every 6 hours as needed for severe pain. Do not drive or operate heavy machinery while taking oxycodone as it is a narcotic pain medicine. * Use Polysporin ointment 3 times daily on your abrasions to promote healing and prevent infection. * Use Lidocaine patches over your rib fractures. You can apply a patch for 12 hours, then remove for 12 hours, repeat. * Continue to use the incentive spirometer as directed. This will help expand your lungs and prevent an infection from developing. * Take Vitamin B12 (cyanocobalamin) 1,000 mcg daily. Your Vitamin B12 was on the lower end of normal, so this will help supplement that. * Continue your home medications as prescribed. * Follow-up with your PCP in 1-2 weeks. Please return to the hospital if you experience any of the following: Difficulty breathing, shortness of breath, chest pain, new or worsening abdominal pain, dizziness, lightheadedness, passing out, confusion, or any other symptoms concerning for you. It was a pleasure taking care of you while you were in the hospital! Supervising Physician Co-Signing Physician Notes chart reviewed and case d/w S Ethan DOE attempted to see pt prior to discharge, but due to my being held up with other patient care responsibilities, she had left the building before i was able to personally see her. as above Total Time Total Time Spent Total Time Spent (In Minutes): Greater than 30 minutes spent completing this discharge process including direct patient care, medication reconciliation, documentation, review of labs and images, and coordination of care. Coding Level of Care Code 48544 INP/OBS DISCH >30 MIN Diagnoses Rib fractures S22.49XA Rhabdomyolysis M62.82 Alcohol use F10.90 Multiple falls R29.6 Type 1 diabetes E10.9 HTN (hypertension) I10 Asthma J45.909
[2024-07-19] MEDS ORDERED: CYANOCOBALAMIN (B-12) 500 MCG TABLET PO SCH (09:00)
== END 2024-07-18 16:59 | disposition home or self-care (01) | DRG 184 ==
LOC: ED 10:10 → EDINP 12:50 → SUATTDRO 12:50 → 2S 15:37